=== PATIENT | female | born 1985 | race Caucasian/White ===

== ENCOUNTER 2018-01-16 12:20 | Inpatient (IN) | payer OTHER, SELFPAY ==
[2018-01-16 12:41] VITALS: BMI 36.6
[2018-01-16] MEDS: Lactated Ringers 1,000 ML 50 ML IV ×2 (12:45→22:16)
[2018-01-16 13:03] LABS: Mucous, Urine 0 SEEN /hpf (<or=2+); Red Blood Cells-Urine 0 SEEN /hpf (0-5)
[2018-01-16 13:07] LABS: Color, Urine Yellow (Yellow); Glucose, Dipstick Normal (Normal); Ketone-Dipstick Negative (Negative); Leukocyte Esterase-Dipstick 500 /ul (Negative); Nitrite-Dipstick Negative (Negative); Occult Blood-Urine Negative /ul (Negative); Protein-Dipstick Negative (Negative); Specific Gravity, Urine 1.015 (1.002-1.030); Urine Bilirubin Dipstick Negative (Negative); Urine Clarity Clear (Clear); Urine Urobilinogen Normal (Normal)
[2018-01-16 13:08] LABS: Hematocrit 34.3 % (37-47); Hemoglobin 11.2 g/dl (12.0-15.0); Mean Corp Hgb Conc 32.7 g/gl (32-36); Mean Corpuscular Hgb 27.2 pg (27.0-32.0); Mean Corpuscular Volume 83.3 fL (81-99); Mean Platelet Vol. 11.8 fl (6.2-12.0); Platelet Count 204 K/mm3 (150-450); RBC Distribution Width CV 14.3 % (11.6-14.6); RBC Distribution Width SD 41.9 fl (35.1-43.9); Red Blood Count 4.12 M/mm3 (4.2-5.4); Scan Indicated on CBC? Y/N NO
[2018-01-16 13:14] LABS: Bacteria 1+ /hpf (None Seen); Squamous Epithelial Cells - UA 0-5 SEEN /hpf (5-10); White Blood Cells 25-50 SEEN /hpf (0-5)
[2018-01-16 13:17] LABS: Amphetamine Urine VISTA NEGATIVE (<1000 ng/mL); Barbiturate Urine VISTA NEGATIVE (< 200 ng/mL); Benzodiazepine Urine VISTA NEGATIVE (< 200 ng/mL); Cocaine Urine VISTA NEGATIVE (< 300 ng/mL); Ecstacy Urine VISTA NEGATIVE (< 500 ng/mL); Methadone Urine VISTA NEGATIVE (< 300 ng/mL); PCP Urine VISTA NEGATIVE (< 25 ng/mL); THC Urine VISTA NEGATIVE (< 50 ng/mL); Vista UDS pH Range 5
[2018-01-16 13:48] LABS: Rubella IgG 27.2 IU/mL
[2018-01-16 14:14] LABS: HIV - WCH Non-Reactive (Nonreactive)
[2018-01-16] MEDS: Oxytocin 30 units/NS 500 ml 30 UNITS/500 ML IV.SOLN IV (14:26)
[2018-01-16 15:02] LABS: Chlamydia Trachomatis by PCR Negative (Negative); Group B Strep DNA By PCR Negative (Negative); Internal Control PASS; Neisserai gonorrhoeae by PCR Negative (Negative); Probe Check PASS; Sample Adequacy Control PASS; Specimen Processing Control PASS
[2018-01-17] VITALS (24 sets, daily range): BP systolic 76–115; BP diastolic 32–68; PULSE 62–98; RESP 12–18; TEMP 36.1–37.3; O2SAT 94–99
--- NOTE | 2018-01-17 00:01 | HP.PCM_ITS ---
- Problem List (1) Prolonged rupture of membranes Status: Acute (2) Previous delivery affecting Status: Acute History Date of Admission: 01/16/18 Final DANILO: 01/08/18 Gestational age: 41 Weeks and 2 Days History of this : This is a 32 year-old, G [], P [], at 41 weeks gestational age. Medical History: Medical History (Last Updated 01/17/18 @ 00:45 by Elsa Leone MD) delivery delivered O82 Knee pain, chronic M25.569, G89.29 Surgical History: Surgical History (Last Updated 01/17/18 @ 00:45 by Elsa Leone MD) H/O knee surgery Z98.890 Allergies No Known Allergies Allergy (Verified 01/16/18 13:17) Home Medications: Home Medications Calcium Citrate 200 mg PO DAILY 01/16/18 Multivitamin [Multiple Vitamins] 1 tab PO DAILY 01/16/18 Smoking Status: Never smoker Alcohol: None Number of Fetus(es): 1 Heart Tracin-140 moderate variability reactiv nilson decels cat I tracing TOCO Analysis: irregular History Past Pregnancies: Past Pregnancies Delivery Date Name GA/Weeks Outcome Route Weight Gender Labor Length Anesthesia Delivery Location Provider FOB 2016 Malinda 39 face presentation cs 7lbs8 oz female Labs: [facility] Microbiology 01/16/18 Unknown Genital vaginal Group B Streptococcus Culture - Pending Mom[facility] Problem List Problem Status Onset Code Prolonged rupture of membranes Acute O42.90 Previous delivery affecting Acute O34.219 [facility] Labs & Results 01/16/18 01/16/18 01/16/18 12:45 12:45 12:45 WBC 10.0 RBC 4.12 L Hgb 11.2 L Hct 34.3 L MCV 83.3 MCH 27.2 MCHC 32.7 RDW 14.3 RDW Differential 41.9 Plt Count 204 MPV 11.8 Urine Color Yellow Urine Clarity Clear Urine pH 6.0 Ur Specific [place] 1.015 Urine Protein Negative Urine Glucose (UA) Normal Urine Ketones Negative Urine Occult Blood Negative Urine Nitrite Negative Urine Bilirubin Negative Urine Urobilinogen Normal Ur Leukocyte Esterase 500 H Urine RBC 0 SEEN Urine WBC 25-50 SEEN Ur Squamous Epith Cells 0-5 SEEN Urine Bacteria 1+ Urine Mucus 0 SEEN Urine Opiates Screen Urine Methadone Screen Ur Barbiturates Screen Ur Phencyclidine Scrn Ur Amphetamines Screen U Methamphetamin-MDMA U Benzodiazepines Scrn Urine Cocaine Screen U Cannabinoids Screen Ur Drug Screen Comment RPR Chlam trachomat DNA PCR Hep Bs Antigen Hepatitis C Ab (EIA) HIV 1&2 Antibody N.gonorrhoeae DNA (PCR) Rubella IgG Antibody Group B Strep DNA Specimen Comment Blood Type A POSITIVE Antibody Screen NEGATIVE 01/16/18 01/16/18 01/16/18 12:45 12:45 12:45 WBC RBC Hgb Hct MCV MCH MCHC RDW RDW Differential Plt Count MPV Urine Color Urine Clarity Urine pH Ur Specific [place] Urine Protein Urine Glucose (UA) Urine Ketones Urine Occult Blood Urine Nitrite Urine Bilirubin Urine Urobilinogen Ur Leukocyte Esterase Urine RBC Urine WBC Ur Squamous Epith Cells Urine Bacteria Urine Mucus Urine Opiates Screen NEGATIVE Urine Methadone Screen NEGATIVE Ur Barbiturates Screen NEGATIVE Ur Phencyclidine Scrn NEGATIVE Ur Amphetamines Screen NEGATIVE U Methamphetamin-MDMA NEGATIVE U Benzodiazepines Scrn NEGATIVE Urine Cocaine Screen NEGATIVE U Cannabinoids Screen NEGATIVE Ur Drug Screen Comment RPR Pending Chlam trachomat DNA PCR Hep Bs Antigen Hepatitis C Ab (EIA) HIV 1&2 Antibody N.gonorrhoeae DNA (PCR) Rubella IgG Antibody 27.2 Group B Strep DNA Specimen Comment Blood Type Antibody Screen 01/16/18 01/16/18 01/16/18 12:45 12:45 12:45 WBC RBC Hgb Hct MCV MCH MCHC RDW RDW Differential Plt Count MPV Urine Color Urine Clarity Urine pH Ur Specific [place] Urine Protein Urine Glucose (UA) Urine Ketones Urine Occult Blood Urine Nitrite Urine Bilirubin Urine Urobilinogen Ur Leukocyte Esterase Urine RBC Urine WBC Ur Squamous Epith Cells Urine Bacteria Urine Mucus Urine Opiates Screen Urine Methadone Screen Ur Barbiturates Screen Ur Phencyclidine Scrn Ur Amphetamines Screen U Methamphetamin-MDMA U Benzodiazepines Scrn Urine Cocaine Screen U Cannabinoids Screen Ur Drug Screen Comment RPR Chlam trachomat DNA PCR Negative Hep Bs Antigen Pending Hepatitis C Ab (EIA) Pending HIV 1&2 Antibody Non-Reactive N.gonorrhoeae DNA (PCR) Negative Rubella IgG Antibody Group B Strep DNA Negative Specimen Comment Not Reportable Blood Type Antibody Screen Course Did the patient receive Yes care? Labs Blood Type: A RH: POSITIVE RPR/VDRL/Syphilis Nonreactive Rubella status Immune HbSAg Collected on Admission Date Done: 01/16/18 Chlamydia Negative Gonorrhea Negative HIV/AIDS Non-Reactive Group B Strep: Negative Current Obstetrical History Gestational Diabetes No Incompetent Cervix No Infertility No IUGR No Macrosomia No Hypertension/Pre-eclampsia No Placenta Previa/Abruption No PTL/PROM No Uterine anomaly No Oligohydramnios No Polyhydramnios No Multiple gestation No Past Medical History Asthma No Diabetes No Hypertension No Heart disease No Mitral valve prolapse No Neurologic/Seizure disorder/ No Migraines Kidney disease No Liver disease No Varicosities Yes Clotting disorders/Hx of DVT No Thyroid Dysfunction No Other medical diseases No Psychiatric disorders No Major trauma No Abnormal PAP smear No Sleep apnea No Mammogram in the last 2 years No Social History Marital Status: Alleged father VALERI Hx Smoking No Smoking Status Never smoker How long have you used NA substances (years)? Expected Delivery Method: Review of Systems Constitutional: Denies: Fever, Malaise Eyes: Denies: Blurred vision, Vision Change HEENT: Denies: Head Aches, Visual Changes Cardiovascular: Denies: Chest Pain, Palpitations Respiratory: Denies: Cough, Shortness of Breath, Wheezing Gastrointestinal: Denies: Abdominal Pain, Diarrhea, Nausea, Vomiting Genitourinary: Denies: Dysuria, Hematuria Musculoskeletal: Denies: Joint Pain, Muscle pain Skin: Denies: Lesions, Rash Neurological: Denies: Blurred vision, Focal weakness, Headaches Psychiatric: Denies: Anxiety, Depression Endocrine: Denies: Heat/ Cold Intolerance Hematologic/ Lymphatic: Denies: Easy Bruising, Easy Bleeding Physical Exam General: Alert, Cooperative, No apparent distress HEENT: Atraumatic, Normocephalic. Negative for: Thyromegaly, Lymphadenopathy Cardiovascular: Regular rate Lungs: Normal air movement Abdomen: Soft, Non Tender, Gravid Neurological: Deep Tendon Reflexes 2+/4 and Symmetrical, Neuro grossly intact. Negative for: Clonus INSTRUCTIONAL MEDIA SERVICES TECHNICIAN: Normal external genitalia. Negative for: Vulvar lesions Estimated gestational size: Appropriate for gestational size Presentation: Cephalic Cervix Dilation (cm): 3.5 Assessment/Plan All Active Problems Prolonged rupture of membranes (Acute) Previous delivery affecting (Acute) This is a 32 year-old, G2, at 41 weeks gestational age desires Patient presents Pitocin IOL, plan expectant management for . patient counseled regarding risks of - consent signed. Pain management: open to epi if needed but declines at this time. GBS uknown, but PROM 48 hours recommend ampicillin. Management of any complications: PROM I have reviewed the [facility] and made any clinically relevant updates.
--- NOTE | 2018-01-17 00:54 | PCM.PN.BLA ---
Progress Note fht 140-145 moderate variability reactive intermittent variable/ isolated late decel. cat II. now in regular ctx pattern and making cervical change s/p epi. continue exp management.
--- NOTE | 2018-01-17 02:59 | PCM.PN.BLA ---
Progress Note fht 140s min-moderate variability positive scalp stimulation, recurrent late decels cat II tracing- position changes and decresaed pitocin. 7 cm dilated 0 station, ROP. discussed with patient- start amnioinfuion for variable appearance to some decels, and no appears more like early decels- continue to monitor. bedside huddle performed with nurse and charge nurse. rassuring at present but repeat huddle in 30 minutes to reassess.
--- NOTE | 2018-01-17 03:39 | PCM.OPRPT ---
Problem List (1) Prolonged rupture of membranes Status: Acute (2) Previous delivery affecting Status: Acute Report of Operation Date of Procedure: 01/17/18 Pre-Operative Diagnosis: FTP secondary to CPD, category II tracing Post-Operative Diagnosis: Same Surgery/Procedure Performed:: RLTCS Description of Surgical Findings:: Infant in HANK presentation narrow pelvis director of campus recreation: Katelyn Keenan Type of Anesthesia:: Epidural Special Medications: ancef azithromycin Specimen's removed: infant Drains: Calix Estimated Blood Loss (mL): 800 cc Fluids Replaced: Crystalloid Description of Procedure: The patient is a 32-year-old who presented at 48 hours P PROM at 41 and 1 weeks from an attempted home labor. Patient had a history of a previous secondary to face presentation. She had been receiving care from a master lay out specialist in the community but had received 3 normal ultrasounds during the room in normal anatomy. Patient was 3-4 cm dilated upon presentation, GBS unknown, and was irregularly kalani. Patient was started on Pitocin and developed regular contractions. She may change to 5 cm and then experienced an arrest of dilation. Was recommended for her to get an epidural and the Pitocin was turned on and off and then redosed and patient made change up to 6-7 cm. After 4 hours patient experienced another arrest of dilation and developed a category 2 recurrent tracing with late decelerations that were recurrent with greater than 50% of contractions and therefore the decision was made for a primary . Epidural anesthesia was dosed accordingly and the patient was placed in the dorsal supine position with leftward tilt. Patient was prepped and draped in the normal sterile fashion. Pfannenstiel skin incision was made with the scalpel and carried through to the underlying layer of fascia with the scalpel. Fascia was nicked in the midline and the incision extended laterally. The rectus bellies were dissected off superiorly and inferiorly with out complication both sharply and bluntly. The peritoneum was entered digitally. The incision was stretched and a low transverse uterine incision was made with the scalpel. The infant's head was delivered atraumatically followed by the anterior and posterior shoulders without complication the rest of the infant delivered. The cord was clamped and cut and the was handed off to awaiting nurse. The placenta was delivered spontaneously immediately following and was noted to be intact and have a three-vessel cord. The uterus was exteriorized cleared of all clots and debris, and the incision was closed in a double layer closure using #1 Monocryl. The uterus was returned to the maternal abdomen and gutters were cleared of all clots and debris. The ovaries and fallopian tubes were noted to be within normal limits. The peritoneum was closed with 3-0 Monocryl in a running fashion. Fascia was closed with 0 PDS in a running fashion. Subcutaneous tissue was copiously irrigated and the skin was closed with 3-0 Monocryl in a subcuticular fashion. Steri-Strips and Mepilex dressing were applied without complication. Patient was taken to recovery in stable condition. Grafts/Implants Used: None - Complications none - Admit VTE Documentation VTE Present on Admission: No
[2018-01-17] MEDS: Sodium Citrate/Citric Acid 30 ML UDC PO (03:42)
[2018-01-17] MEDS: Cefazolin 2 GM in 0.9% Normal Saline 100 ML IV (03:49)
[2018-01-17] MEDS: Oxytocin 30 units/NS 500 ml 30 UNITS/500 ML IV.SOLN 167 UNITS IV (04:11)
[2018-01-17] MEDS: Lactated Ringers 1,000 ML 100 ML IV ×2 (05:28→11:11)
[2018-01-17 10:23] LABS: HEPATITIS B SURFACE AG Negative (Negative); Hep C Antibodies <0.1 s/co ratio (0.0-0.9)
[2018-01-17] MEDS: Ketorolac 30 MG/ML Syringe IV ×3 (11:11→23:20)
--- NOTE | 2018-01-17 13:00 | NURSING ---
This clinical nursing director reviewed the charting completed by Lincoln Spence and it is complete.
[2018-01-17] MEDS: 0.9% Saline Lock 10 ML Syringe IV ×2 (17:07→23:20)
[2018-01-18 02:37] VITALS: PULSE 61; RESP 18; O2SAT 97
[2018-01-18 04:15] VITALS: BP 114/54; PULSE 81; RESP 16; TEMP 37.1; O2SAT 97
[2018-01-18] MEDS: Ketorolac 30 MG/ML Syringe IV ×4 (05:32→23:08)
[2018-01-18] MEDS: 0.9% Saline Lock 10 ML Syringe IV ×5 (05:32→23:08)
[2018-01-18 05:54] LABS: Hematocrit 28.8 % (37-47); Hemoglobin 9.2 g/dl (12.0-15.0); Mean Corp Hgb Conc 31.9 g/gl (32-36); Mean Corpuscular Volume 84.5 fL (81-99); Mean Platelet Vol. 10.7 fl (6.2-12.0); Platelet Count 150 K/mm3 (150-450); RBC Distribution Width CV 14.6 % (11.6-14.6); RBC Distribution Width SD 45.2 fl (35.1-43.9); Red Blood Count 3.41 M/mm3 (4.2-5.4)
[2018-01-18 06:13] LABS: Scan Indicated on CBC? Y/N NO
--- NOTE | 2018-01-18 08:04 | PCM.PN.OB ---
Patient Problems: Active and Suspected Problems (Last Updated 01/17/18 @ 00:45 by Elsa Leone MD) Prolonged rupture of membranes (Acute) Previous delivery affecting (Acute) Subjective: NO SOB, CP. Ambulating. Doing well - Physical Exam General: Alert, Oriented x3 Abdomen: Soft, Non-Distended, - - FF below U. Dressing intact. Old dark drainage 2cm outer left side/nurses aware. No new drainage Vital Signs Temp Pulse Resp BP Pulse Ox 98.7 F 81 16 114/54 L 97 01/18/18 04:15 01/18/18 04:15 01/18/18 04:15 01/18/18 04:15 01/18/18 04:15 Oxygen Delivery Method Room Air Weight: 220 lb 0.341 oz Body Mass Index (BMI) 36.6 Intake and Output for Last 24 Hours 01/16/18 01/17/18 01/18/18 23:59 23:59 23:59 Intake Total 480 / 480 3513 / 3513 Output Total 200 / 200 3300 / 3300 Balance 280 / 280 213 / 213 Laboratory Tests Past 24 Hrs 01/16/18 01/18/18 12:45 05:04 WBC 8.0 RBC 3.41 L Hgb 9.2 L Hct 28.8 L MCV 84.5 MCH 27.0 MCHC 31.9 L RDW 14.6 RDW Differential 45.2 H Plt Count 150 MPV 10.7 Hep Bs Antigen Negative Hepatitis C Ab (EIA) <0.1 Medical Necessity - Tobacco Use Smoking Status: Never smoker Assessment/Plan All Active Problems (Last Updated 01/17/18 @ 00:45 by Elsa Lenoe MD) Prolonged rupture of membranes (Acute) Previous delivery affecting (Acute) LTRCS POD#1: Routine care. Pain controlled.
[2018-01-18 08:32] VITALS: BP 109/56; PULSE 77; RESP 16; TEMP 36.9
[2018-01-18] MEDS: Prenatal Vits Tablet 1 TABLET PO (11:21)
[2018-01-18 14:00] VITALS: BP 118/74; PULSE 79; RESP 16; TEMP 36.8
[2018-01-18 20:50] VITALS: BP 135/71; PULSE 94; RESP 18; TEMP 37.4; O2SAT 95
[2018-01-19 01:58] LABS: Rapid Plasmin Reagin (RPR) NONREACTIVE (NONREACTIVE)
[2018-01-19 03:05] VITALS: BP 117/72; PULSE 76; RESP 18; TEMP 37.7; O2SAT 95
--- NOTE | 2018-01-19 03:05 | NURSING ---
Pt. vital signs obtained. Temporal artery temperature found to be 99.9 degrees F. All other vital signs within normal limits. Pt. states she feels warm but does not feel ill or have any c/o. Tylenol given to help with low grade fever and a pain level of 4.
[2018-01-19] MEDS: Acetaminophen 500 MG Tablet 1000 MG PO ×2 (03:26→14:41)
[2018-01-19 05:02] VITALS: TEMP 37
[2018-01-19] MEDS: Ketorolac 30 MG/ML Syringe IV (05:04)
[2018-01-19] MEDS: 0.9% Saline Lock 10 ML Syringe IV (05:04)
[2018-01-19 07:52] VITALS: BP 126/68; PULSE 75; RESP 16; TEMP 36.9; O2SAT 97
--- NOTE | 2018-01-19 09:48 | PCM.PN.OB ---
Patient Problems: Active and Suspected Problems (Last Updated 01/17/18 @ 00:45 by Elsa Leone MD) Prolonged rupture of membranes (Acute) Previous delivery affecting (Acute) Subjective: doing well n ocomplaints - Physical Exam General: Alert, Oriented x3 Vital Signs Temp Pulse Resp BP Pulse Ox 98.5 F 75 16 126/68 H 97 01/19/18 07:52 01/19/18 07:52 01/19/18 07:52 01/19/18 07:52 01/19/18 07:52 Oxygen Delivery Method Room Air Weight: 220 lb 0.341 oz Body Mass Index (BMI) 36.6 Intake and Output for Last 24 Hours 01/17/18 01/18/18 01/19/18 23:59 23:59 23:59 Intake Total 3513 / 3513 Output Total 3300 / 3300 1000 / 1000 Balance 213 / 213 -1000 / -1000 Microbiology Past 72 Hours 01/16/18 Unknown Group B Streptococcus Culture - Preliminary Genital vaginal Group B Beta Streptococcus is not isolated. Laboratory Tests Past 24 Hrs 01/16/18 12:45 RPR NONREACTIVE Medical Necessity - Tobacco Use Smoking Status: Never smoker Assessment/Plan All Active Problems (Last Updated 01/17/18 @ 00:45 by Elsa Leone MD) Prolonged rupture of membranes (Acute) Previous delivery affecting (Acute) s/p LTCS PPD # 3 1. routine post care 2. breast feeding- support given 3. rh positive 4. rubella immune
--- NOTE | 2018-01-19 09:50 | DCINST_ITS ---
Discharge Diet: No Restrictions Discharge Activity: May Not Drive - for 2 weeks, May not drive while taking narcotic pain medications., May Shower, May Take a Tub Bath - in 7 days May resume sexual activity in: 4-6 weeks Lifting Restrictions: 20 pounds Additional Activity Instructions:: Nothing in the vagina for 4-6 weeks. You may return to work/school in 6 weeks. Call your doctor if your incision/area has: Continuous Slow Oozing, Sudden Increased Bleeding, Increased Pain/ Swelling, Increased Redness, Foul Smelling Discharge Call your doctor if you observe: Fever of 101 or Higher, Using more than one pad per hour - for 2 hours Suture Line Care: Avoid Pulling/Pushing, Avoid Pinching/Bending Cleanse incision/area with: Keep Dressing Clean & Dry Additional Instructions: If you experience any of the following, contact your healthcare provider. * Bleeding that soaks a pad every hour for 2 hours * Fever 100.4 or higher * Unrelieved incision or abdominal pain * Swelling, redness, discharge or bleeding from your incision or episiotomy site * Your incision begins to separate * Problems urinating (including inability to urinate or burning while urinating). * Visual changes * Severe headache * Flu-like symptoms * Pain or redness in one of both of your breasts * Pain, warmth, tenderness or swelling in your legs, especially the calf area * Frequent nausea and vomiting * Symptoms of depression or anxiety If you experience any of the following, call 911 or go to the nearest Emergency Room. * Chest pain * Problems breathing * Seizure activity * Partial or complete paralysis of a body part, slurred speech, weakness or drooping of the face, or a sudden inability to walk or hold your balance Allergies/Adverse Reactions: Allergies No Known Allergies Allergy (Verified 01/16/18 13:17) Medications to take at Discharge Calcium Citrate 200 mg PO DAILY 01/16/18 Multivitamin [Multiple Vitamins] 1 tab PO DAILY 01/16/18 Naproxen [Naprosyn] 250 - 500 mg PO Q8H PRN PRN #30 tablet 01/19/18 Oxycodone HCl/Acetaminophen [Percocet 5-325] 1 - 2 tablet PO Q4H PRN PRN 7 Days #15 tablet 01/19/18 The following prescriptions were given: Oxycodone HCl/Acetaminophen [Percocet 5-325] 1 - 2 tablet PO Q4H PRN PRN 7 Days #15 tablet PRN Reason: Pain Naproxen [Naprosyn] 250 - 500 mg PO Q8H PRN PRN #30 tablet PRN Reason: MILD PAIN Follow-Up: Call to make an appointment with your doctor for an incision check in 1-2 weeks. You will also need a 6 week post- follow up appointment. Test results from this visit will be discussed in further detail at your follow-up appointment, if applicable. Please Follow Up With: Elsa Leone MD - Call to make an appointment for an incision check in 1-2 [phone] When: You will need a post- check in 6 weeks. Primary Care Physician: Care Physician,No Primary [Primary Care Provider] -
[2018-01-19] MEDS: Prenatal Vits Tablet 1 TABLET PO (12:20)
[2018-01-19] MEDS: Naproxen 250 MG Tablet PO (12:20)
[2018-01-19 14:29] VITALS: BP 133/75; PULSE 73; RESP 14; TEMP 36.6; O2SAT 99
--- NOTE | 2018-01-25 08:55 | PCM.DC.SUM ---
Discharge Date and Diagnosis Date of Admission: 01/16/18 Date of Discharge: 01/19/18 Hospital Course and Treatment Consultations 01/16/18 12:41 Consult: Anesthesia Routine Comment: Reason For Exam: labor Operations: - - csection Procedures: None Summary of Care Provided: The patient is a 32 year old F presents IAL SROM over 48 hours, she was managed with pitocin and had an arrest of dilation and underwent RLTCS. routine recovery post op and discharged home pod 2 - Physical Exam Vital Signs Temp Pulse Resp BP Pulse Ox 98 F 73 14 133/75 H 99 01/19/18 14:29 01/19/18 14:29 01/19/18 14:29 01/19/18 14:29 01/19/18 14:29 Oxygen Delivery Method Room Air Weight: 220 lb 0.341 oz Body Mass Index (BMI) 36.6 Discharge Diet: No Restrictions Discharge Activity: May Not Drive - for 2 weeks, May not drive while taking narcotic pain medications., May Shower, May Take a Tub Bath - in 7 days May resume sexual activity in: 4-6 weeks Additional Activity Instructions:: Nothing in the vagina for 4-6 weeks. You may return to work/school in 6 weeks. Call your doctor if your incision/area has: Continuous Slow Oozing, Sudden Increased Bleeding, Increased Pain/ Swelling, Increased Redness, Foul Smelling Discharge Call your doctor if you observe: Fever of 101 or Higher, Using more than one pad per hour - for 2 hours Suture Line Care: Avoid Pulling/Pushing, Avoid Pinching/Bending Cleanse incision/area with: Keep Dressing Clean & Dry Home Medications: Medications to take at Discharge Calcium Citrate 200 mg PO DAILY 01/16/18 Multivitamin [Multiple Vitamins] 1 tab PO DAILY 01/16/18 Naproxen [Naprosyn] 250 - 500 mg PO Q8H PRN PRN #30 tablet 01/19/18 Oxycodone HCl/Acetaminophen [Percocet 5-325] 1 - 2 tablet PO Q4H PRN PRN 7 Days #15 tablet 01/19/18 Following Prescrptions Were Given to Patient: Oxycodone HCl/Acetaminophen [Percocet 5-325] 1 - 2 tablet PO Q4H PRN PRN 7 Days #15 tablet PRN Reason: Pain Naproxen [Naprosyn] 250 - 500 mg PO Q8H PRN PRN #30 tablet PRN Reason: MILD PAIN Primary Care Physician: Care Physician,No Primary [Primary Care Provider] - Please Follow Up With: Elsa Leone MD - Call to make an appointment for an incision check in 1-2 [phone] When: You will need a post- check in 6 weeks. Medical Necessity - Tobacco Use Smoking Status: Never smoker Meaningful Use Info Meaningful Use Diagnoses (Choose all that apply): None applicable
== END 2018-01-19 15:35 | disposition home or self-care (01) | DRG 788 ==
PROVIDERS: Admitting Provider Obstetrics & Gynecology; Referring Provider Obstetrics & Gynecology; Visit Provider Obstetrics & Gynecology
DX: O62.0 Primary inadequate contractions (principal); O34.211 Maternal care for low transverse scar from previous cesarean delivery; O33.1 Maternal care for disproportion due to generally contracted pelvis; O48.0 Post-term pregnancy; Z3A.41 41 weeks gestation of pregnancy; Z37.0 Single live birth
CPT/HCPCS: 59025; 59050; 80307; 81001; 85027; 86592; 86703; 86762; 86803; 86850; 86900; 87081; 87340; 87491; 87591; 87653; 99218; J7030; J7120; A4216; G0378; J0290

== ENCOUNTER → 2018-03-26 12:16 | Outpatient (CLI) | payer OTHER, SELFPAY ==
[2018-03-26 11:53] VITALS: BMI 36.6
[2018-03-26 12:52] LABS: Absolute Lymphocyte Count 2.23 X10^3/ul (0.83-4.51); Absolute Neutrophil Count 1.9 X10^3/uL (2.0-7.7); Basophil# 0.01 X10^3/uL; Basophil% 0.2 % (0-1); Eosinophil# 0.07 X10^3/uL; Eosinophils% 1.5 % (0-5); Hematocrit 37.3 % (37-47); Hemoglobin 12.3 g/dl (12.0-15.0); Lymphocyte # 2.23 X10^3/ul (4.0); Lymphocyte % 48.8 % (19-41); Mean Corpuscular Hgb 27.2 pg (27.0-32.0); Mean Corpuscular Volume 82.5 fL (81-99); Mean Platelet Vol. 11.2 fl (6.2-12.0); Monocyte# 0.39 X10^3/uL; Monocyte% 8.5 % (0-10); Neutrophil # 1.87 X10^3/uL (2.7-7.7); Platelet Count 260 K/mm3 (150-450); RBC Distribution Width CV 15.2 % (11.6-14.6); RBC Distribution Width SD 46.2 fl (35.1-43.9); Red Blood Count 4.52 M/mm3 (4.2-5.4); White Blood Count 4.6 K/mm3 (4.4-11.0)
[2018-03-26 13:04] LABS: POSITIVE COUNT NO; POSITIVE DIFFERENTIAL NO; POSITIVE MORPHOLOGY NO
[2018-03-26 13:08] LABS: Thyroid Stim Hormone (TSH) 1.66 uIU/mL (0.358-3.74)
== END ==
PROVIDERS: Visit Provider Obstetrics & Gynecology
DX: N93.9 Abnormal uterine and vaginal bleeding, unspecified (principal)
CPT/HCPCS: 36415; 84443; 85025

== ENCOUNTER → 2018-10-08 10:58 | Outpatient (CLI) | payer OTHER, SELFPAY ==
[2018-10-08 10:32] VITALS: BMI 36.6
[2018-10-08 11:41] LABS: Absolute Lymphocyte Count 1.45 X10^3/uL (0.83-4.51); Absolute Neutrophil Count 4.5 X10^3/uL (2.0-7.7); Basophil# 0.02 X10^3/uL; Basophil% 0.3 % (0-1); Eosinophil# 0.14 X10^3/uL; Eosinophils% 2.1 % (0-5); Hematocrit 36.4 % (37-47); Hemoglobin 12.1 g/dL (12.0-15.0); Lymphocyte # 1.45 X10^3/ul (4.0); Lymphocyte % 22.1 % (19-41); Mean Corp Hgb Conc 33.2 g/dL (32-36); Mean Corpuscular Hgb 29.7 pg (27.0-32.0); Mean Corpuscular Volume 89.4 fL (81-99); Mean Platelet Vol. 11.7 fl (6.2-12.0); Monocyte# 0.46 X10^3/uL; NRBC Flagged by Analyzer 0 % (0-5); Neutrophil # 4.46 X10^3/uL (2.7-7.7); Platelet Count 221 K/mm3 (150-450); RBC Distribution Width CV 12.6 % (11.6-14.6); RBC Distribution Width SD 41.5 fl (35.1-43.9); Red Blood Count 4.07 M/mm3 (4.2-5.4); White Blood Count 6.6 K/mm3 (4.4-11.0)
[2018-10-08 11:49] LABS: Glucose Challenge Gest 1H 50g 74 mg/dL (70-140)
[2018-10-08 13:04] LABS: HIV - WCH Non-Reactive (Nonreactive); Hepatitis B Surface Antigen Non-Reactive (Nonreactive); Rubella IgG 29.3 IU/mL
[2018-10-08 14:46] LABS: Chlamydia Trachomatis by PCR Negative (Negative); Neisserai gonorrhoeae by PCR Negative (Negative); Probe Check PASS; Sample Adequacy Control PASS; Specimen Processing Control PASS
[2018-10-12 01:33] LABS: Rapid Plasmin Reagin (RPR) NONREACTIVE (NONREACTIVE)
== END ==
PROVIDERS: Referring Provider Nurse Practitioner Women's Health; Visit Provider Nurse Practitioner Women's Health
DX: Z34.81 Encounter for supervision of other normal pregnancy, first trimester (principal)
CPT/HCPCS: 36415; 82950; 85025; 86592; 86703; 86762; 86850; 86900; 87077; 87086; 87088; 87186; 87340; 87491; 87591

== ENCOUNTER → 2018-12-07 12:14 | Outpatient (CLI) | payer OTHER, SELFPAY ==
[2018-11-05 14:56] VITALS: BMI 36.6
--- NOTE | 2018-12-07 12:16 | US_ITS ---
STUDY: SECOND AND THIRD TRIMESTER OBSTETRICAL ULTRASOUND REASON FOR EXAM: Female, 33 years old anatomy. LMP: July 24, 2018. TECHNIQUE: Transabdominal TECHNICAL QUALITY: Adequate. PRIOR ULTRASOUND: None. FINDINGS: There is a single intrauterine fetus. The fetus is in a transverse lie with the head on the maternal right side. There is demonstrated cardiac activity with a heart rate of 130 bpm. There is a normal amniotic fluid volume. The largest amniotic fluid pocket measures 4.1 cm x 4.5 cm. The amniotic fluid index (JOSH) is within normal limits. The placenta is posterior in location and is not low lying. There are Grade 0 placental changes. The placenta is vascular. There is a 1.5 cm x 0.8 cm x 1 cm placental tan. The cervix measures 4.2 cm in length. The bilateral adnexal regions are normal. BIOMETRY: BPD: 4.34 cm: 19 weeks, 0 days HC: 15.68 cm: 18 weeks, 6 days AC: 14.77 cm: 20 weeks, 0 days FL: 2.9 Sylvester: 18 weeks, 5 days CI: 80.7% FL/BPD: 66.3% FL/HC: FL/AC: 19.4% HC/AC: 1.06 age by current US: 8 weeks, 5 days. DANILO by current US: May 05, 2019. Estimated weight: 295 grams, +/- 44 grams, 39 %. Age by LMP: 19 weeks, 3 days. DANILO by LMP: April 30, 2018. ANATOMY: Gender: Female Cranium: Normal lateral ventricles. Normal choroid plexus. Normal cerebellum. Normal cisterna magna. Normal face, nose and lips. Chest: Normal 4-chamber heart. Abdomen/Pelvis: Normal diaphragm. Normal stomach. Normal abdominal wall. Normal cord insertion. Normal 3 vessel cord. Normal kidneys. Normal bladder. Spine: Normal cervical spine. Normal thoracic spine. Normal lumbar spine. Normal sacrum. Extremities: Normal bilateral upper extremities. Normal bilateral lower extremities. US/OB Anatomy Scan IMPRESSION: Single live intrauterine gestation with a mean gestational age of 19 weeks and 3 days. Electronically Signed: Prashanth Kellogg, at 9:10 EDT , Service support ,
== END ==
PROVIDERS: Referring Provider Obstetrics & Gynecology; Visit Provider Obstetrics & Gynecology
DX: Z36.89 Encounter for other specified antenatal screening (principal)
CPT/HCPCS: 76805

== ENCOUNTER → 2019-02-12 15:00 | Outpatient (CLI) | payer OTHER, SELFPAY ==
[2019-02-12 14:18] VITALS: BMI 30.7
[2019-02-12 15:28] LABS: Absolute Lymphocyte Count 1.97 X10^3/uL (0.83-4.51); Basophil# 0.01 X10^3/uL; Basophil% 0.1 % (0-1); Eosinophil# 0.17 X10^3/uL; Hematocrit 35.6 % (37-47); Hemoglobin 11.5 g/dL (12.0-15.0); Lymphocyte # 1.97 X10^3/ul (4.0); Lymphocyte % 22.6 % (19-41); Mean Corp Hgb Conc 32.3 g/dL (32-36); Mean Corpuscular Hgb 29.3 pg (27.0-32.0); Mean Corpuscular Volume 90.6 fL (81-99); Mean Platelet Vol. 10.8 fl (6.2-12.0); Monocyte# 0.54 X10^3/uL; Monocyte% 6.2 % (0-10); NRBC Flagged by Analyzer 0 % (0-5); Neutrophil # 5.97 X10^3/uL (2.7-7.7); Neutrophil % 68.5 % (47-70); Platelet Count 220 K/mm3 (150-450); RBC Distribution Width CV 12.8 % (11.6-14.6); RBC Distribution Width SD 42.5 fl (35.1-43.9); Red Blood Count 3.93 M/mm3 (4.2-5.4); White Blood Count 8.7 K/mm3 (4.4-11.0)
[2019-02-12 15:48] LABS: Glucose Challenge Gest 1H 50g 94 mg/dL (70-140)
== END ==
PROVIDERS: Referring Provider Nurse Practitioner Women's Health; Visit Provider Nurse Practitioner Women's Health
DX: Z34.80 Encounter for supervision of other normal pregnancy, unspecified trimester (principal)
CPT/HCPCS: 36415; 82950; 85025

== ENCOUNTER 2019-04-29 09:55 | Inpatient (IN) | payer OTHER, SELFPAY ==
[2019-02-28 14:04] VITALS: BMI 30.7
[2019-04-19 15:47] VITALS: BMI 35.4
[2019-04-29] VITALS (16 sets, daily range): BP systolic 100–135; BP diastolic 53–80; PULSE 54–68; RESP 16–18; TEMP 36.2–37.1; O2SAT 98–100; BMI 34.8
[2019-04-29] MEDS: Lactated Ringers 1,000 ML 999 ML IV (10:40)
[2019-04-29 11:04] LABS: Absolute Lymphocyte Count 1.65 X10^3/uL (0.83-4.51); Absolute Neutrophil Count 4.4 X10^3/uL (2.0-7.7); Basophil# 0.01 X10^3/uL; Basophil% 0.1 % (0-1); Eosinophil# 0.14 X10^3/uL; Eosinophils% 2.1 % (0-5); Hematocrit 34.8 % (37-47); Hemoglobin 11.3 g/dL (12.0-15.0); Lymphocyte # 1.65 X10^3/ul (4.0); Lymphocyte % 24.3 % (19-41); Mean Corp Hgb Conc 32.5 g/dL (32-36); Mean Corpuscular Hgb 27.4 pg (27.0-32.0); Mean Corpuscular Volume 84.5 fL (81-99); Mean Platelet Vol. 11.1 fl (6.2-12.0); Monocyte# 0.55 X10^3/uL; Monocyte% 8.1 % (0-10); NRBC Flagged by Analyzer 0 % (0-5); Neutrophil # 4.41 X10^3/uL (2.7-7.7); Neutrophil % 64.8 % (47-70); Platelet Count 204 K/mm3 (150-450); RBC Distribution Width CV 14.2 % (11.6-14.6); RBC Distribution Width SD 43.6 fl (35.1-43.9); Red Blood Count 4.12 M/mm3 (4.2-5.4); White Blood Count 6.8 K/mm3 (4.4-11.0)
[2019-04-29] MEDS: Lactated Ringers 1,000 ML 150 ML IV (11:50)
[2019-04-29] MEDS: Sodium Citrate/Citric Acid 30 ML UDC PO (12:06)
[2019-04-29] MEDS: Cefazolin 2 GM in 0.9% Normal Saline 100 ML IV (12:20)
--- NOTE | 2019-04-29 12:45 | PCM.HPOB.BLA ---
- Problem List (1) Family history of cleft palate Status: Acute Comment: Patient's sister (2) GBS (group B streptococcus) UTI complicating Status: Acute Qualifiers: Comment: treated (3) History of Status: Acute Comment: plans c section, hx failed (4) Status: Acute Qualifiers: Comment: Declines carrier. NIPT low risk,declines ntd screening. 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 Status: Acute Comment: enc support stockings History and Physical Date of Admission: 04/29/19 Intake Vital Signs 04/19/19 BMI 35.4 04/19/19 Height 5 ft 5.5 in 04/19/19 Weight: 218 lb 04/19/19 BMI 35.7 04/19/19 BP 110/62 Intake Visit Reasons: 37 WK OB Human Resource Professional Required: No Is patient in pain?: No Allergies cephalexin Adverse Reaction (Mild, Verified 04/19/19 15:46) Rash Penicillins Adverse Reaction (Mild, Verified 04/19/19 15:46) Hives Medications Multivitamin [Multiple Vitamins] 1 tab PO DAILY 01/16/18 [History Confirmed 04/19/19] lactobacillus combination no.8 3 billion cell capsule 3,000 mmu cells PO DAILY 03/06/18 [History Confirmed 04/19/19] Last Menstral Period: 07/24/18 Zika: Zika virus screening: Negative : No PFSH PFSH Medical History Knee pain, chronic (Acute) Surgical History delivery delivered (Acute) H/O knee surgery (Acute) Family History Unknown Diabetes Social History (Updated 04/19/19 @ 15:52 by Elsa Leone MD) Smoking Status: Never smoker alcohol intake: never substance use type: does not use caffeine: Yes what type of physical activity do you participate in: walking seatbelt use: always do you feel safe at home: Yes additional social history: Gene- [employer] and 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 Date Name GA/Weeks Outcome Route Bth Weight Gen Labor Lgth Anesthesia Del Locatn Provider FOB Unknown 2015 Malinda 44 live - full term 7lbs 10oz Female [address] Cali [place] Unknown 2017 Woo 41 live - full term 9lbs 2oz Male spinal [facility] Delivery Date: On 10/08/18 @ 10:05 Lo Monique post dates, prolonged labored. face presentation Delivery Date: On 10/08/18 @ 10:07 Lo Monique face presentation HPI 37 WK OB: Details: JOSE ANTONIO KNOWLES is a 33 year old who presents for routine OB visit. OB Visit DANILO Calculator Estimated Delivery Date Method Current WG Current Estimate 04/30/19 LMP (Certain) 38w 3d Other Estimates 05/02/19 Ultrasound #1 38w 1d Expected Delivery Route/Plan LTRCS Specific Issue/Plans flu vaccine: given tdap vaccine: given rhogam: na LARC form signed: yes labor support person: Sary pain management: c section cut cord/dad catch: [] : yes PP control planned: [] special requests: [] Initial Weight: Not Recorded Date EGA Weight BP Urine Prot Glucose FHR FuHt Pres Dilation Effaced St Visit Note 12/07/18 19w 3d 187 lb 8 oz 120/72 Negative Negative 153 No Vb, LOF. Doing well 02/12/19 29w 0d 208 lb 120/80 Negative Negative 134 29 Good FM. NO VB, LOF. 28 wk labs, flu, tdap 02/28/19 31w 2d 205 lb 116/72 135 31 no vb lof good fm no reg ctx 03/15/19 33w 3d 216 lb 126/82 Negative Negative 135 34 SM- no vb lof good fm no reg ctx 04/12/19 37w 3d 213 lb 8 oz 121/65 Negative Negative 150 37 SM- no vb lof good fm no regular ctx 04/19/19 38w 3d 218 lb 110/62 Negative Negative 140 38 SM- no vb lof good fm no reg ctx Notes Visit Date: 04/19/19 ??No visit notes to display Visit Date: 04/12/19 ??No visit notes to display Visit Date: 03/15/19 ??No visit notes to display Visit Date: 02/28/19 ??no vb lof good fm no reg ctx ??Elsa Leone MD on 02/28/19 Visit Date: 02/12/19 ??Good FM. NO VB, LOF. 28 wk labs, flu, tdap ??TRACI ByrdC on 02/12/19 Visit Date: 12/07/18 ??No Vb, LOF. Doing well ??KATY Byrd on 12/07/18 ACOG First Trimester First Trimester: Second Trimester Second Trimester: Signs and Symptoms of Labor, Selecting a care provider, Reproductive Life Planning, Care Planning, Tobacco Cessation, Depression/Anxiety and Intimate Partner Violence Third Trimester Third Trimester: Pain Management Plans, Labor support person(s), Immediate Larc, Movement Monitoring and Infant Feeding Yes ; discussed Trial of Labor after Counseling or discussed Circumcision preference Diagnostics Diagnostics Diagnostics Blood Type A POSITIVE 10/08/18 Antibody Screen NEGATIVE 10/08/18 Glucose 1 Hr 50 gm 94 mg/dL (70-140) 02/12/19 HIV 1&2 Antibody Non-Reactive (Nonreactive) 10/08/18 Rubella IgG Antibody 29.3 IU/mL 10/08/18 Hgb 11.5 g/dL (12.0-15.0) L 02/12/19 Hct 35.6 % (37-47) L 02/12/19 RPR NONREACTIVE (NONREACTIVE) 10/08/18 Details: HIV: Urine Culture: Sequential Screen: NIPT Screen: ROS Const Reports system reviewed and no additional complaints, except as docu Card Reports system reviewed and no additional complaints, except as docu Resp Reports system reviewed and no additional complaints, except as docu GI Reports system reviewed and no additional complaints, except as docu, Reports nausea Reports system reviewed and no additional complaints, except as docu Musc Reports system reviewed and no additional complaints, except as docu Exam Const General: cooperative, healthy appearing, comfortable, anxious HENMT Head: normal to inspection Nose: external nose normal Face and sinus: normal facial exam Neck Neck: normal visual inspection, full ROM, no lymphadenopathy Thyroid: thyroid normal Chest Chest palpation & inspection: normal inspection of the chest Resp Effort & Inspection: normal respiratory effort GI Inspection: normal to inspection Palpation: soft, other (gravid uterus) Other: infant vertex and appropriate size for gestational age Other: Cervical Exam: Extrem General: pedal edema Results POC Urinalysis 2 Dip (Clinic) Office Urine Glucose Negative Last Edit by Ria Marnio on 04/19/19 15:50 Office Urine Protein Negative Last Edit by Ria Marino on 04/19/19 15:50 Assessment & Plan Problems 1. Group B Streptococcus urinary tract infection affecting in first trimester O23.41 treated 2. Varicose veins of left lower extremity without ulcer or inflammation I83.92 enc support stockings 3. Family history of cleft palate Z82.79 Patient's sister 4. History of Z98.891 plans c section, hx failed 5. 38 weeks gestation of Z3A.38 Declines carrier. NIPT low risk,declines ntd screening. Anatomy US normal 6. 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 Elsa Leone MD
[2019-04-29] MEDS: Oxytocin 30 units/NS 500 ml 30 UNITS/500 ML IV.SOLN 334 UNITS IV (13:05)
[2019-04-29] MEDS: Lactated Ringers 1,000 ML 100 ML IV (14:15)
[2019-04-29] MEDS: Ketorolac 30 MG/ML Syringe IV (19:34)
[2019-04-29] MEDS: 0.9% Saline Lock 10 ML Syringe IV (23:20)
[2019-04-30] VITALS (13 sets, daily range): BP systolic 102–120; BP diastolic 54–72; PULSE 58–72; RESP 16–18; TEMP 36.6–37.3; O2SAT 97–100
--- NOTE | 2019-04-30 01:00 | PCM.OPRPT ---
Problem List (1) Family history of cleft palate Status: Acute Comment: Patient's sister (2) GBS (group B streptococcus) UTI complicating Status: Acute Qualifiers: Comment: treated (3) History of Status: Acute Comment: plans c section, hx failed (4) Status: Acute Qualifiers: Comment: Declines carrier. NIPT low risk,declines ntd screening. 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 Spinal anesthesia was placed without difficulty. Calix catheter was placed. The patient was placed in the dorsal supine position with leftward tilt. Patient was prepped and draped in the normal sterile fashion. Pfannenstiel skin incision was made with the scalpel and carried through to the underlying layer of fascia with the scalpel. Fascia was nicked in the midline and the incision extended laterally. The rectus bellies were dissected off superiorly and inferiorly with out complication both sharply and bluntly. The peritoneum was entered digitally. The incision was stretched and a low transverse uterine incision was made with the scalpel. The 's head was delivered atraumatically followed by the anterior and posterior shoulders without complication the rest of the delivered. The cord was clamped and cut and the was handed off to awaiting nurse. The placenta was delivered spontaneously immediately following and was noted to be intact and have a three-vessel cord. The uterus was exteriorized cleared of all clots and debris, and the incision was closed in a double layer closure using #1 Monocryl. The ovaries and fallopian tubes were noted to be within normal limits. The uterus was returned to the maternal abdomen and gutters were cleared of all clots and debris. The peritoneum was closed with 3-0 Monocryl in a running fashion. Gloves were changed prior to fascial closure. Fascia was closed with 0 PDS in a running fashion. Subcutaneous tissue was copiously irrigated and the skin was closed with 3-0 Monocryl in a subcuticular fashion. Mepilex dressing was applied without complication. Patient was taken to recovery in stable condition. It was discussed with the patient that based on the clinical information obtained during this encounter, combined with her history, at this time I would recommend repeat cesareans for future deliveries if further pregnancies are desired. Multi Select Codes - Urinary/Genital Urinary/Genital CPT Codes: 71449 Delivery [facility]
[2019-04-30] MEDS: Ketorolac 30 MG/ML Syringe IV ×2 (01:47→13:06)
[2019-04-30] MEDS: Enoxaparin 40 MG/0.4 ML Syringe SC ×2 (01:48→13:12)
[2019-04-30] MEDS: 0.9% Saline Lock 10 ML Syringe IV ×3 (01:48→13:06)
[2019-04-30 05:17] LABS: Hematocrit 31.2 % (37-47); Hemoglobin 10.1 g/dL (12.0-15.0); Mean Corp Hgb Conc 32.4 g/dL (32-36); Mean Corpuscular Hgb 27.6 pg (27.0-32.0); Mean Corpuscular Volume 85.2 fL (81-99); Mean Platelet Vol. 11.1 fl (6.2-12.0); Platelet Count 163 K/mm3 (150-450); RBC Distribution Width CV 14.4 % (11.6-14.6); RBC Distribution Width SD 44.1 fl (35.1-43.9); Red Blood Count 3.66 M/mm3 (4.2-5.4)
--- NOTE | 2019-04-30 08:01 | PCM.PN.OB ---
Subjective: Doing well, no complaints.Pain controlled. Denies CP, SOB, N,V. Ambulating well, tolerating po. Lochia moderate, going well. - Physical Exam Vitals/I&O's: Vital Signs Temp Pulse Resp BP Pulse Ox 97.9 F 60 16 120/58 L 100 04/30/19 05:06 04/30/19 07:00 04/30/19 07:00 04/30/19 05:06 04/30/19 07:00 Oxygen Delivery Method Room Air Weight: 215 lb 12.8 oz Body Mass Index (BMI) 34.8 Intake and Output for Last 24 Hours 04/28/19 04/29/19 04/30/19 23:59 23:59 23:59 Intake Total 4275.83 / 4275.83 Output Total 1600 / 1600 1500 / 1500 Balance 2675.83 / 2675.83 -1500 / -1500 General: Alert, Oriented x3 Abdomen: Soft, Non-Distended, - - FF below U. Dressing dry and intact Laboratory Results 04/29/19 10:40: WBC 6.8, RBC 4.12 L, Hgb 11.3 L, Hct 34.8 L, MCV 84.5, MCH 27.4, MCHC 32.5, RDW Std Deviation 43.6, RDW Coeff of Anson 14.2, Plt Count 204, MPV 11.1, Immature Gran % (Auto) 0.600, Neut % (Auto) 64.8, Lymph % (Auto) 24.3, Newton % (Auto) 8.1, Eos % (Auto) 2.1, Baso % (Auto) 0.1, Absolute Neuts (auto) 4.4, Absolute Lymphs (auto) 1.65, Nucleated RBC % 0 04/29/19 10:40: Blood Type A POSITIVE, Antibody Screen NEGATIVE 04/30/19 05:00: WBC 8.0, RBC 3.66 L, Hgb 10.1 L, Hct 31.2 L, MCV 85.2, MCH 27.6, MCHC 32.4, RDW Std Deviation 44.1 H, RDW Coeff of Anson 14.4, Plt Count 163, MPV 11.1 Current Medications Acetaminophen (Tylenol) 1,000 mg PO Q8H PRN PRN Reason: Pain Score 1-3/10 Bisacodyl (Dulcolax) 10 mg RECTAL UD PRN PRN Reason: If no BM Enoxaparin Sodium (Lovenox) 40 mg SC DAILY [facility] Last Admin: 04/30/19 01:48 Dose: 40 mg Documented by: Hydrocortisone (Hytone) 1 applic TOPICAL TID PRN PRN; Protocol PRN Reason: Discomfort Ketorolac Tromethamine (Toradol (Bkc)) 30 mg IV Q6H [facility] Stop: 05/01/19 13:46 Last Admin: 04/30/19 01:47 Dose: 30 mg Documented by: Methylergonovine Maleate (Methergine) 0.2 mg IM X1 PRN PRN Reason: Uterine Atony Naloxone HCl (Narcan) 0.02 mg IV Q1M PRN PRN Reason: RR <10 and pt unresponsive Naproxen (Naprosyn) 250 - 500 mg PO Q8H PRN PRN PRN Reason: Pain Score 1-3/10 Ondansetron HCl (Zofran) 4 mg IV Q4H PRN PRN PRN Reason: Nausea Oxycodone HCl (Oxyir) 5 - 10 mg PO Q4H PRN PRN PRN Reason: Pain Score 4-10/10 Prochlorperazine Edisylate (Compazine Iv) 10 mg IV Q6H PRN PRN PRN Reason: NAUSEA Senna/Docusate Sodium (Senokot-S, Josefa-Colace) 0 tablet PO DAILY PRN PRN Reason: Constipation Simethicone (Mylicon) 80 mg PO PCHS PRN PRN Reason: Indigestion/stomach pain Sodium Chloride () 5 - 15 ml IV UD PRN PRN Reason: SALINE FLUSH Last Admin: 04/30/19 01:49 Dose: 10 ml Documented by: Medical Necessity - Tobacco Use Smoking Status: Never smoker Assessment/Plan All Active Problems (Last Reviewed 04/19/19 @ 15:46 by Ria Marino) GBS (group B streptococcus) UTI complicating (Acute) 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 routine post care 2. breast feeding- support given 3. rh positive 4. rubella immune
[2019-04-30] MEDS: Naproxen 250 MG Tablet PO (22:40)
[2019-05-01 02:00] VITALS: BP 132/61; PULSE 64; RESP 16; TEMP 37.2; O2SAT 98
[2019-05-01] MEDS: Acetaminophen 500 MG Tablet 1000 MG PO (02:42)
--- NOTE | 2019-05-01 07:54 | PCM.PN.OB ---
Subjective: Doing well, no complaints.Pain controlled. Denies CP, SOB, N,V. Ambulating well, tolerating po. Lochia moderate, going well. - Physical Exam Vitals/I&O's: Vital Signs Temp Pulse Resp BP Pulse Ox 99.0 F 64 16 132/61 H 98 05/01/19 02:00 05/01/19 02:00 05/01/19 02:00 05/01/19 02:00 05/01/19 02:00 Oxygen Delivery Method Room Air Weight: 215 lb 12.8 oz Body Mass Index (BMI) 34.8 Intake and Output for Last 24 Hours 04/29/19 04/30/19 05/01/19 23:59 23:59 23:59 Intake Total 4275.83 / 4275.83 Output Total 1600 / 1600 1500 / 1500 Balance 2675.83 / 2675.83 -1500 / -1500 General: Alert, Oriented x3 Abdomen: Soft, Non-Distended, - - FF below U. Dressing dry and intact Current Medications Acetaminophen (Tylenol) 1,000 mg PO Q8H PRN PRN Reason: Pain Score 1-3/10 Last Admin: 05/01/19 02:42 Dose: 1,000 mg Documented by: Bisacodyl (Dulcolax) 10 mg RECTAL UD PRN PRN Reason: If no BM Enoxaparin Sodium (Lovenox) 40 mg SC DAILY [facility] Last Admin: 04/30/19 13:12 Dose: 40 mg Documented by: Hydrocortisone (Hytone) 1 applic TOPICAL TID PRN PRN; Protocol PRN Reason: Discomfort Methylergonovine Maleate (Methergine) 0.2 mg IM X1 PRN PRN Reason: Uterine Atony Naloxone HCl (Narcan) 0.02 mg IV Q1M PRN PRN Reason: RR <10 and pt unresponsive Naproxen (Naprosyn) 250 - 500 mg PO Q8H PRN PRN PRN Reason: Pain Score 1-3/10 Last Admin: 04/30/19 22:40 Dose: 500 mg Documented by: Ondansetron HCl (Zofran) 4 mg IV Q4H PRN PRN PRN Reason: Nausea Oxycodone HCl (Oxyir) 5 - 10 mg PO Q4H PRN PRN PRN Reason: Pain Score 4-10/10 Prochlorperazine Edisylate (Compazine Iv) 10 mg IV Q6H PRN PRN PRN Reason: NAUSEA Senna/Docusate Sodium (Senokot-S, Josefa-Colace) 0 tablet PO DAILY PRN PRN Reason: Constipation Simethicone (Mylicon) 80 mg PO PCHS PRN PRN Reason: Indigestion/stomach pain Sodium Chloride () 5 - 15 ml IV UD PRN PRN Reason: SALINE FLUSH Last Admin: 04/30/19 13:06 Dose: 10 ml Documented by: Medical Necessity - Tobacco Use Smoking Status: Never smoker Assessment/Plan All Active Problems (Last Reviewed 04/19/19 @ 15:46 by Ria Marino) GBS (group B streptococcus) UTI complicating (Acute) 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 routine post care 2. breast feeding- support given 3. rh positive 4. rubella immune 5. home today
--- NOTE | 2019-05-01 07:55 | DCINST_ITS ---
Additional Instructions: If you experience any of the following, contact your healthcare provider. * Bleeding that soaks a pad every hour for 2 hours * Fever 100.4 or higher * Unrelieved incision or abdominal pain * Swelling, redness, discharge or bleeding from your incision or episiotomy site * Your incision begins to separate * Problems urinating (including inability to urinate or burning while urinating). * Visual changes * Severe headache * Flu-like symptoms * Pain or redness in one of both of your breasts * Pain, warmth, tenderness or swelling in your legs, especially the calf area * Frequent nausea and vomiting * Symptoms of depression or anxiety If you experience any of the following, call 911 or go to the nearest Emergency Room. * Chest pain * Problems breathing * Seizure activity * Partial or complete paralysis of a body part, slurred speech, weakness or drooping of the face, or a sudden inability to walk or hold your balance Allergies/Adverse Reactions: Allergies No Known Allergies Allergy (Verified 04/29/19 12:20) Medications to take at Discharge Multivitamin [Multiple Vitamins] 1 tab PO DAILY 01/16/18 lactobacillus combination no.8 3 billion cell capsule 3,000 mmu cells PO DAILY 03/06/18 Guaifenesin [Mucinex] 600 mg PO PRN PRN 04/29/19 Follow-Up: Call to make an appointment with your doctor for an incision check in 1-2 weeks. You will also need a 6 week post- follow up appointment. Test results from this visit will be discussed in further detail at your follow- up appointment, if applicable.
--- NOTE | 2019-05-01 07:55 | PCM.DCCSEC ---
Additional Instructions: If you experience any of the following, contact your healthcare provider. Bleeding that soaks a pad every hour for 2 hours Fever 100.4 or higher Unrelieved incision or abdominal pain Swelling, redness, discharge or bleeding from your incision or episiotomy site Your incision begins to separate Problems urinating (including inability to urinate or burning while urinating). Visual changes Severe headache Flu-like symptoms Pain or redness in one of both of your breasts Pain, warmth, tenderness or swelling in your legs, especially the calf area Frequent nausea and vomiting Symptoms of depression or anxiety If you experience any of the following, call 911 or go to the nearest Emergency Room. Chest pain Problems breathing Seizure activity Partial or complete paralysis of a body part, slurred speech, weakness or drooping of the face, or a sudden inability to walk or hold your balance Allergies/Adverse Reactions: Allergies No Known Allergies Allergy (Verified 04/29/19 12:20) Medications to take at Discharge Multivitamin [Multiple Vitamins] 1 tab PO DAILY 01/16/18 lactobacillus combination no.8 3 billion cell capsule 3,000 mmu cells PO DAILY 03/06/18 Guaifenesin [Mucinex] 600 mg PO PRN PRN 04/29/19 Follow-Up: Call to make an appointment with your doctor for an incision check in 1-2 weeks. You will also need a 6 week post- follow up appointment. Test results from this visit will be discussed in further detail at your follow-up appointment, if applicable.
[2019-05-01] MEDS: Naproxen 250 MG Tablet PO (08:41)
[2019-05-01 08:43] VITALS: BP 119/63; PULSE 74; RESP 16; TEMP 36.7; O2SAT 98
== END 2019-05-01 10:45 | disposition home or self-care (01) | DRG 788 ==
PROVIDERS: Admitting Provider Obstetrics & Gynecology; Referring Provider Obstetrics & Gynecology; Visit Provider Obstetrics & Gynecology
PROC: (CPT 59514; principal; 2019-04-29 11:45)
DX: O65.5 Obstructed labor due to abnormality of maternal pelvic organs (principal); O34.211 Maternal care for low transverse scar from previous cesarean delivery; I83.92 Asymptomatic varicose veins of left lower extremity; Z3A.38 38 weeks gestation of pregnancy; Z37.0 Single live birth; Z82.79 Family history of other congenital malformations, deformations and chromosomal abnormalities
CPT/HCPCS: 85025; 85027; 86850; 86900; 86901; 99218; 99251; J7120; A4216; G0378; G0463

== ENCOUNTER → 2020-12-15 07:45 | Outpatient (CLI) | payer OTHER, SELFPAY ==
--- NOTE | 2020-12-15 07:48 | US_ITS ---
STUDY: FIRST TRIMESTER OBSTETRICAL ULTRASOUND REASON FOR EXAM: Female, 35 years old well being LMP: 10/01/2020. TECHNIQUE: Transabdominal TECHNICAL QUALITY: Adequate. PRIOR ULTRASOUND: None. FINDINGS: There is visualization of a single gestational sac in a normal intrauterine position. The mean sac diameter (MSD) measures 3.51 cm, indicating an estimated gestational age (EGA) of 9 weeks, 2 days. The gestational sac shape is within normal limits. There is a visualized yolk sac. The yolk sac measures 5.7 mm. The placenta is non-visualized. There is visualization of a live embryo. The crown-rump length (CRL) measures 3.42 cm, indicating an estimated gestational age (EGA) of 10 weeks, 0 days. There is demonstrated cardiac activity with a heart rate of 169 bpm. The estimated gestation age (EGA) by LMP is 10 weeks, 5 days. The estimated date of delivery (DANILO) by LMP is 07/08/2021. The estimated gestation age (EGA) by US is 10 weeks, 0 days. The estimated date of delivery (DANILO) by US is 07/13/2021. The uterus measures 10.5 cm x 6.9 cm x 6.4 cm. There is no demonstrated uterine fibroid. The cervix is closed. The right ovary measures 3.2 cm x 2.5 cm x 2 cm. There is no right ovarian cyst. There is no visualized right adnexal mass or complex lesion. The left ovary measures 3.6 cm x 3.9 cm x 2.6 cm. There is no left ovarian cyst. There is no visualized left adnexal mass or complex lesion. There is no fluid in the cul de sac. US/Init OB < 14Wks US IMPRESSION: Single live intrauterine gestation with a mean gestational age of 10 weeks. Electronically Signed: Prashanth Kellogg MD at 10:37 EDT , Service support ,
== END ==
PROVIDERS: Referring Provider Obstetrics & Gynecology; Visit Provider Obstetrics & Gynecology
DX: Z34.90 Encounter for supervision of normal pregnancy, unspecified, unspecified trimester (principal)
CPT/HCPCS: 76801

== ENCOUNTER → 2020-12-25 16:16 | Outpatient (CLI) | payer OTHER, SELFPAY ==
[2020-12-25 16:56] LABS: Absolute Lymphocyte Count 1.74 X10^3/uL (0.83-4.51); Absolute Neutrophil Count 5.3 X10^3/uL (2.0-7.7); Basophil# 0.02 X10^3/uL; Basophil% 0.3 % (0-1); Eosinophil# 0.25 X10^3/uL; Eosinophils% 3.2 % (0-5); Hemoglobin 11.3 g/dL (12.0-15.0); Lymphocyte # 1.74 X10^3/ul (0.83-4.51); Lymphocyte % 22.1 % (19-41); Mean Corp Hgb Conc 32.3 g/dL (32-36); Mean Corpuscular Hgb 30.8 pg (27.0-32.0); Mean Corpuscular Volume 95.4 fL (81-99); Mean Platelet Vol. 11.1 fl (6.2-12.0); Monocyte# 0.58 X10^3/uL; Monocyte% 7.4 % (0-10); NRBC Flagged by Analyzer 0 % (0-5); Neutrophil # 5.25 X10^3/uL (2.7-7.7); Neutrophil % 66.6 % (47-70); Platelet Count 243 K/mm3 (150-450); RBC Distribution Width CV 14.6 % (11.6-14.6); RBC Distribution Width SD 51.6 fl (35.1-43.9); Red Blood Count 3.67 M/mm3 (4.2-5.4); White Blood Count 7.9 K/mm3 (4.4-11.0)
[2020-12-25 17:49] LABS: Amphetamine Urine VISTA NEGATIVE (<1000 ng/mL); Barbiturate Urine VISTA NEGATIVE (< 200 ng/mL); Benzodiazepine Urine VISTA NEGATIVE (< 200 ng/mL); Cocaine Urine VISTA NEGATIVE (< 300 ng/mL); Ecstacy Urine VISTA NEGATIVE (< 500 ng/mL); Methadone Urine VISTA NEGATIVE (< 300 ng/mL); PCP Urine VISTA NEGATIVE (< 25 ng/mL); THC Urine VISTA NEGATIVE (< 50 ng/mL); Vista UDS pH Range 5
[2020-12-28 08:42] LABS: HIV - WCH Non-Reactive (Nonreactive); Hepatitis B Surface Antigen Non-Reactive (Nonreactive); Hepatitis C Antibody Non-Reactive (Nonreactive); Rubella IgG Reactive (Nonreactive); Syphilis Antibodies Non-reactive
[2020-12-28 22:06] LABS: Chlamydia By Nucleic Acid AMP Negative (Negative)
[2020-12-29 07:55] LABS: Gonococcus By Nucleic Acid AMP Negative (Negative)
[2020-12-31 16:28] LABS: HPV APTIMA, High Risk Negative (Negative)
== END ==
PROVIDERS: Visit Provider Obstetrics & Gynecology
DX: Z34.81 Encounter for supervision of other normal pregnancy, first trimester (principal); Z12.4 Encounter for screening for malignant neoplasm of cervix
CPT/HCPCS: 36415; 80307; 85025; 86703; 86762; 86780; 86803; 86850; 86900; 86901; 87086; 87088; 87340; 87491; 87591; 87624; 88175; G0145

== ENCOUNTER → 2021-02-03 08:51 | Outpatient (CLI) | payer OTHER, SELFPAY ==
[2021-02-03 09:44] LABS: T4 Free Direct 1.04 ng/dL (0.76-1.46); Thyroid Stim Hormone (TSH) 1.94 uIU/mL (0.358-3.74)
[2021-02-03 11:05] LABS: NATERA MAILED SPECIMEN
== END ==
PROVIDERS: Referring Provider Nurse Practitioner Women's Health; Visit Provider Nurse Practitioner Women's Health
DX: L65.9 Nonscarring hair loss, unspecified (principal); Z13.29 Encounter for screening for other suspected endocrine disorder
CPT/HCPCS: 36415; 84439; 84443

== ENCOUNTER → 2021-03-08 13:59 | Outpatient (CLI) | payer OTHER, SELFPAY ==
--- NOTE | 2021-03-08 14:03 | US_ITS ---
STUDY: SECOND AND THIRD TRIMESTER OBSTETRICAL ULTRASOUND REASON FOR EXAM: Female, 35 years old / anatomy -- AMA LMP: 10/01/2020. TECHNIQUE: Transabdominal TECHNICAL QUALITY: Adequate. PRIOR ULTRASOUND: Comparison is made with prior examination dated 12/07/2020. FINDINGS: There is a single intrauterine fetus. The fetus is in a cephalic presentation. There is demonstrated cardiac activity with a heart rate of 148 bpm. There is a normal amniotic fluid volume. The largest amniotic fluid pocket measures 5 cm x 6.3 cm. The amniotic fluid index (JOSH) is within normal limits. The placenta is anterior in location and is not low lying. There are Grade 0 placental changes. The cervix measures 5 cm in length. The adnexal regions are not visualized. BIOMETRY: BPD: 5.54 cm: 22 weeks, 6 days HC: 20.9 cm: 22 weeks, 6 days AC: 18.6 cm: 23 weeks, 2 days FL: 3.8 cm: 22 weeks, 1 days CI: 78.6% FL/BPD: 68.7% FL/HC: FL/AC: 20.5% HC/AC: 1.13 age by current US: 22 weeks, 4 days. DANILO by current US: 07/09/2019. Estimated weight: 545 grams, +/- 82 grams, 58.6 %. age by prior US: 21 weeks, 6 days. DANILO by prior US: 07/13/2021. Age by LMP: 22 weeks, 4 days. DANILO by LMP: 07/08/2021. ANATOMY: Gender: Male Cranium: Normal lateral ventricles. Normal choroid plexus. Normal cerebellum. Normal cisterna magna. Normal face, nose and lips. Chest: Normal 4-chamber heart. Abdomen/Pelvis: Normal diaphragm. Normal stomach. Normal abdominal wall. Normal cord insertion. Normal 3 vessel cord. Normal kidneys. Normal bladder. Spine: Due to the position, limited visualization of the spine. Follow-up is recommended. Extremities: Normal bilateral upper extremities. Normal bilateral lower extremities. US/Transvaginal w/Preg US IMPRESSION: Single live uterine gestation with mean gestational age of 21 weeks and 6 days. The measurements obtained today following the normal expected range. Limited visualization of the spine due to the position. Repeat examination is recommended. Electronically Signed: Prashanth Kellogg MD at 9:01 EST , Service support ,
--- NOTE | 2021-03-08 15:01 | US_ITS ---
STUDY: SECOND AND THIRD TRIMESTER OBSTETRICAL ULTRASOUND REASON FOR EXAM: Female, 35 years old / anatomy -- AMA LMP: 10/01/2020. TECHNIQUE: Transabdominal TECHNICAL QUALITY: Adequate. PRIOR ULTRASOUND: Comparison is made with prior examination dated 12/07/2020. FINDINGS: There is a single intrauterine fetus. The fetus is in a cephalic presentation. There is demonstrated cardiac activity with a heart rate of 148 bpm. There is a normal amniotic fluid volume. The largest amniotic fluid pocket measures 5 cm x 6.3 cm. The amniotic fluid index (JOSH) is within normal limits. The placenta is anterior in location and is not low lying. There are Grade 0 placental changes. The cervix measures 5 cm in length. The adnexal regions are not visualized. BIOMETRY: BPD: 5.54 cm: 22 weeks, 6 days HC: 20.9 cm: 22 weeks, 6 days AC: 18.6 cm: 23 weeks, 2 days FL: 3.8 cm: 22 weeks, 1 days CI: 78.6% FL/BPD: 68.7% FL/HC: FL/AC: 20.5% HC/AC: 1.13 age by current US: 22 weeks, 4 days. DANILO by current US: 07/09/2019. Estimated weight: 545 grams, +/- 82 grams, 58.6 %. age by prior US: 21 weeks, 6 days. DANILO by prior US: 07/13/2021. Age by LMP: 22 weeks, 4 days. DANILO by LMP: 07/08/2021. ANATOMY: Gender: Male Cranium: Normal lateral ventricles. Normal choroid plexus. Normal cerebellum. Normal cisterna magna. Normal face, nose and lips. Chest: Normal 4-chamber heart. Abdomen/Pelvis: Normal diaphragm. Normal stomach. Normal abdominal wall. Normal cord insertion. Normal 3 vessel cord. Normal kidneys. Normal bladder. Spine: Due to the position, limited visualization of the spine. Follow-up is recommended. Extremities: Normal bilateral upper extremities. Normal bilateral lower extremities. US/OB Anatomy Scan IMPRESSION: Single live uterine gestation with mean gestational age of 21 weeks and 6 days. The measurements obtained today following the normal expected range. Limited visualization of the spine due to the position. Repeat examination is recommended. Electronically Signed: Prashanth Kellogg MD at 9:01 EST , Service support ,
== END ==
PROVIDERS: Referring Provider Obstetrics & Gynecology; Visit Provider Obstetrics & Gynecology
DX: O09.522 Supervision of elderly multigravida, second trimester (principal); Z3A.21 21 weeks gestation of pregnancy
CPT/HCPCS: 76805; 76817

== ENCOUNTER 2021-04-02 14:11 | Outpatient (CLI) | payer OTHER, SELFPAY ==
--- NOTE | 2021-04-02 14:15 | US_ITS ---
STUDY: SECOND AND THIRD TRIMESTER OBSTETRICAL ULTRASOUND - LIMITED REASON FOR EXAM: Female, 35 years old anatomy follow up LMP: 10/01/2020. PRIOR ULTRASOUND: Comparison is made with prior study dated 03/08/2021. TECHNIQUE: Transabdominal TECHNICAL QUALITY: Adequate. FINDINGS: There is a single intrauterine fetus. The fetus is in a cephalic presentation. There is demonstrated cardiac activity with a heart rate of 136 bpm. There is a normal amniotic fluid volume. The largest amniotic fluid pocket measures 5.5 cm. The amniotic fluid index (JOSH) is within normal limits. The placenta is anterior in location and is not low lying. There are Grade 0 placental changes. The cervix measures 4.7 cm in length. BIOMETRY: Age by LMP: 26 weeks, 1 days. DANILO by LMP: 07/09/2019. age by prior US: 26 weeks, 1 days. DANILO by prior US: 07/09/2021. Reassessment of the cervical, thoracic and lumbar spine was obtained. No adenopathy is visualized. US/OB Limited (No Biometrics) IMPRESSION: Normal amniotic fluid. Electronically Signed: Prashanth Kellogg MD at 15:44 EST , Service support ,
[2021-04-02 15:30] LABS: Absolute Lymphocyte Count 1.85 X10^3/uL (0.83-4.51); Absolute Neutrophil Count 4.9 X10^3/uL (2.0-7.7); Basophil# 0.01 X10^3/uL; Basophil% 0.1 % (0-1); Eosinophils% 1.4 % (0-5); Hematocrit 34.6 % (37-47); Hemoglobin 11.5 g/dL (12.0-15.0); Lymphocyte # 1.85 X10^3/ul (0.83-4.51); Lymphocyte % 25.4 % (19-41); Mean Corp Hgb Conc 33.2 g/dL (32-36); Mean Corpuscular Hgb 29.9 pg (27.0-32.0); Mean Corpuscular Volume 90.1 fL (81-99); Mean Platelet Vol. 11.4 fl (6.2-12.0); Monocyte# 0.44 X10^3/uL; NRBC Flagged by Analyzer 0 % (0-5); Neutrophil # 4.86 X10^3/uL (2.7-7.7); Neutrophil % 66.7 % (47-70); Platelet Count 210 K/mm3 (150-450); RBC Distribution Width CV 12.3 % (11.6-14.6); RBC Distribution Width SD 40.2 fl (35.1-43.9); Red Blood Count 3.84 M/mm3 (4.2-5.4); White Blood Count 7.3 K/mm3 (4.4-11.0)
[2021-04-02 15:58] LABS: Glucose Challenge Gest 1H 50g 93 mg/dL (70-140)
== END 2021-04-02 23:59 | disposition short-term general hospital (02) ==
PROVIDERS: Referring Provider Obstetrics & Gynecology; Visit Provider Obstetrics & Gynecology
DX: O09.90 Supervision of high risk pregnancy, unspecified, unspecified trimester (principal); Z3A.00 Weeks of gestation of pregnancy not specified
CPT/HCPCS: 36415; 76815; 82950; 85025

== ENCOUNTER 2021-06-25 17:03 | Outpatient (CLI) | payer OTHER, SELFPAY | END 2021-06-25 23:59 | disposition home or self-care (01) | PROVIDERS: Visit Provider Obstetrics & Gynecology | DX: O09.522 Supervision of elderly multigravida, second trimester (principal) | CPT/HCPCS: 87081 ==

== ENCOUNTER 2021-07-01 09:55 | Inpatient (IN) | payer OTHER, SELFPAY ==
[2021-07-01] VITALS (18 sets, daily range): BP systolic 101–127; BP diastolic 38–76; PULSE 56–89; RESP 14–16; TEMP 36.4–36.8; O2SAT 97–100; BMI 35.7
[2021-07-01] MEDS: Lactated Ringers 1,000 ML 999 ML IV (10:25)
[2021-07-01 10:54] LABS: Absolute Lymphocyte Count 1.75 X10^3/uL (0.83-4.51); Absolute Neutrophil Count 4.8 X10^3/uL (2.0-7.7); Basophil# 0.01 X10^3/uL; Basophil% 0.1 % (0-1); Eosinophil# 0.14 X10^3/uL; Eosinophils% 1.9 % (0-5); Hematocrit 36.8 % (37-47); Hemoglobin 12.1 g/dL (12.0-15.0); Lymphocyte # 1.75 X10^3/ul (0.83-4.51); Lymphocyte % 23.6 % (19-41); Mean Corp Hgb Conc 32.9 g/dL (32-36); Mean Corpuscular Hgb 29.2 pg (27.0-32.0); Mean Corpuscular Volume 88.9 fL (81-99); Mean Platelet Vol. 11.6 fl (6.2-12.0); Monocyte# 0.66 X10^3/uL; Monocyte% 8.9 % (0-10); NRBC Flagged by Analyzer 0 % (0-5); Neutrophil # 4.81 X10^3/uL (2.7-7.7); Neutrophil % 65.1 % (47-70); Platelet Count 195 K/mm3 (150-450); RBC Distribution Width CV 12.9 % (11.6-14.6); RBC Distribution Width SD 42.2 fl (35.1-43.9); Red Blood Count 4.14 M/mm3 (4.2-5.4); White Blood Count 7.4 K/mm3 (4.4-11.0)
[2021-07-01] MEDS: Acetaminophen 500 MG Tablet 1000 MG PO ×2 (11:03→18:09)
--- NOTE | 2021-07-01 11:07 | HP.PCM.OB_ITS ---
HPI - General General Date of Admission: 07/01/21 HPI Narrative JOSE ANTONIO KNOWLES, is a 36 F who presents for RLTCS. Maternal Data Information DANILO Calculator Estimated Delivery Date Method Current WG Current Estimate 07/08/21 LMP (Certain) 39w 0d PFSH PFSH Medical History (Updated 06/29/21 @ 11:07 by Elle Claros) Knee pain, chronic Home Medications multivitamin 1 tab PO DAILY 01/16/18 [History Last Taken 06/30/21] lactobacillus combination no.8 3 billion cell capsule 3,000 mmu cells PO DAILY 03/06/18 [History Last Taken 06/30/21] miscellaneous medical supply See Rx Instructions MISCELLANEOUS .COMPLEX #2 ea 02/03/21 [Rx Last Taken Unknown] Allergy/AdvReac Type Severity Reaction Status Date / Time No Known Allergies Allergy Verified 06/25/21 14:23 Family History Unknown Diabetes Surgical History delivery delivered H/O knee surgery Social History Smoking Status: Never smoker alcohol intake: never substance use type: does not use caffeine: Yes what type of physical activity do you participate in: walking seatbelt use: always do you feel safe at home: Yes 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 Date Name GA/Weeks Outcome Route Bth Weight Gen Labor Lgth Anesthesia Del Locatn Provider FOB Unknown 2015 Malinda 44 live - full term 7lbs 10o z Female [address] Cali [place] Unknown 2017 Woo 41 live - full term 9lbs 2oz Mal e spinal [facility] 04/30/19 Tatiana 40 live - full term 7lbs 5oz Female 0 spinal [facility] JOVAN Delivery Date: post dates, prolonged labored. face presentation Lo Monique Delivery Date: face presentation Lo Monique Delivery Date: 04/30/19 RLTCS Ene[place],Lo Visit Details Expected Delivery Route/Plan RLTCS with SM Plans Covid status: non immune counseled regarding risk of covid in vs vaccination and declined vaccination Flu vaccine: declined Tdap vaccine: gvien Rhogam: na LARC form signed: declined movement and labor precautions reviewed. Problem list reviewed and updated with the most current plan of care details and appropriate orders placed. Relevant counseling for the gestational age provided. Continue routine care and follow up unless otherwise noted in visit notes/problem list details OB Flowsheet Initial Weight: 169 lb Date -?-?-?-?-?-?-?-?-?-?-?-?- EGA Weight BP Urine Prot -?-?-?-?-?-?-?-?-?-?-?-?- Glucose FHR FuHt Pres Dilation -?-?-?-?-?-?-?-?-?-?-?-?- Effaced St Visit Note 12/25/20 -?-?-?-?-?-?-?-?-?--?-?-?- 12w 1d 169 lb (+0 oz) 100/82 -?-?-?-?-?-?-?-?-?-?-?-?- 165 -?-?-?-?-?-?-?-?-?-?-?-?- SM- no vb viry dennison, had previous us 02/03/21 -?-?-?-?-?-?-?-?-?-?-?-?- 17w 6d 171 lb 6 oz (+2 lb 6 oz) 118/72 Negative -?-?-?-?-?-?-?-?-?-?-?-?- Negative 156 -?-?-?-?-?-?-?-?-?-?-?-?- MH-No VB, LOF. Increasing varicose veins: support hose ordered. Unable to fall asleep:try benadryl prn. More hair loss:thyroid labs and NIPT today. MFM US ordered. 02/26/21 -?-?-?-?-?-?-?-?-?-?-?-?- 21w 1d 186 lb (+17 lb) 118/62 Negative -?-?-?-?-?-?-?-?-?-?-?-?- Negative 146 -?-?-?-?-?-?-?-?-?-?-?-?- JV- no lof, vagi nal bleeding, or dec fm. pelvic support device recommended for lower pressure/pain radiating to back. Missed anatomy scan with MFM. anatomy scan ordered through the hospital. 04/02/21 -?-?-?-?-?-?-?-?-?-?-?-?- 26w 1d 194 lb 2 oz (+25 lb 2 oz) 118/72 -?-?-?-?-?-?-?-?-?-?-?-?- 147 -?-?-?-?-?-?-?-?-?-?-?-?- JV- pt drank her glucola but the lab was closed. She has her anatomy repeat scan today 04/23/21 -?-?-?-?-?-?-?-?-?-?-?-?- 29w 1d 200 lb (+31 lb) 109/65 Negative -?-?-?-?-?-?-?-?-?-?-?-?- Negative 145 30 -?-?-?-?-?-?--?-?-?-?-?-?- SM- no vb lof go od fm no regular ctx 05/21/21 -?-?-?-?-?-?-?-?-?-?-?-?- 33w 1d 210 lb 2 oz (+41 lb 2 oz) 110/68 Negative -?-?-?-?-?-?-?-?-?-?-?-?- Negative 140 33 -?-?-?-?-?-?-?-?-?-?-?-?- SM- no vb lof go od fm no regular ctx, dealing with colds 06/25/21 -?-?-?-?-?-?-?-?-?-?-?-?- 38w 1d 218 lb 8 oz (+49 lb 8 oz) 118/68 Negative -?-?-?-?-?-?-?-?-?-?-?-?- Negative 157 38 Cephalic -?-?-?-?-?-?-?-?-?-?-?-?- JV- no lof, vagi nal bleeding, or dec fm. rpt C/S for . GBS today. 07/01/21 -?-?-?-?-?-?-?-?-?-?-?-?- 39w 0d 221 lb 5.506 oz (+52 lb 5.506 oz) -?-?-?-?-?-?-?-?-?-?-?-?- -?-?-?-?-?-?-?-?-?-?-?-?- NST FHR Rate Baby A Baseline: 130 ROS Constitutional Constitutional: Reports systems reviewed and no addt'l complaints, except as documented Eyes Eyes: Denies change in vision ENT HEENT: Reports systems reviewed and no addt'l complaints, except as documented; Denies headache(s) Cardiovascular Cardiovascular: Reports systems reviewed and no addt'l complaints, except as documented; Denies chest pain or dyspnea Respiratory/Chest Respiratory/Chest: Reports systems reviewed and no addt'l complaints, except as documented Gastrointestinal Gastrointestinal: Reports systems reviewed and no addt'l complaints, except as documented; Denies abdominal pain Genitourinary Genitourinary: Reports systems reviewed and no addt'l complaints, except as documented, contractions Details: present (irregular) and movement Details: present; Denies dysuria or genital lesions Musculoskeletal Musculoskeletal: Reports systems reviewed and no addt'l complaints, except as documented Neurologic Neurologic: Reports systems reviewed and no addt'l complaints, except as documented Endocrine Endocrinology: Reports systems reviewed and no addt'l complaints, except as documented Vital Signs Vital Signs Vital Signs: Weight Weight: 221 lb 5.506 oz Body Mass Index (BMI) 35.7 Physical Exam Const alert, oriented x3, no apparent distress and healthy appearing HEENT normocephalic and moist oral mucous membranes Head and Scalp: atraumatic Neck full ROM, no lymphadenopathy, supple and thyroid normal General: trachea midline Lymph Lymphatic: no lymphadenopathy noted Chest inspection of chest normal Resp normal respiratory effort Cardio regular rate GI normal to inspection, nondistended, normoactive bowel sounds, soft to palpation and non-tender Inspection: gravid external exam normal Manual OB Exam: estimated gestational size appropriate, presentation cephalic, dilated, effaced and station Extremity normal to inspection General Extremity: Negative for edema Skin no rashes or lesions noted Neuro no focal motor deficits and deep tendon reflexes 2+ bilaterally Motor Exam: strength 5/5 throughout and clonus absent Psych mental status grossly normal Labs Labs Labs: Blood Type A POSITIVE Antibody Screen NEGATIVE Hct 36.8 % (37-47) L Hgb 12.1 g/dL (12.0-15.0) Obstetrics US Syphilis Total Ab Non-reactive Rubella IgG Antibody Reactive (Nonreactive) Hep Bs Antigen Non-Reactive (Nonreactive) Chlamydia DNA (EMILY) Negative (Negative) Neisseria gonorrhoeae DNA (EMILY) Negative (Negative) HIV 1&2 Antibody Non-Reactive (Nonreactive) Glucose 1 Hr 50 gm 93 mg/dL (70-140) Group B Strep DNA Negative (Negative) Rhogam given: No Miscellaneous Test Assessment & Plan (1) Family history of cleft palate: COMMENT: Patient's sister (2) Varicose veins of left lower extremity without ulcer or inflammation: COMMENT: enc support stockings/thigh high ordered (3) : QUALIFIERS: Weeks of gestation: 38 weeks Qualified Code(s): Z3A.38 - 38 weeks gestation of COMMENT: declines carrier, genetics low risk; NL anatomy, GBS negative (4) Supervision of high risk , antepartum: COMMENT: PRR DANILO: 07/08/21, boy PC: Woo Petty Victoria Spouse: Gene (5) AMA (advanced maternal age) multigravida 35+: QUALIFIERS: Trimester: second trimester Qualified Code(s): O09.522 - Supervision of elderly multigravida, second trimester COMMENT: growth scan at 36 weeks (6) H/O section: COMMENT: x3- repeat C/S at 39 weeks scheduled for 07/01 @ 12 with SM PLAN: plan RLTCS
--- NOTE | 2021-07-01 11:10 | OP.PCM_ITS ---
Assessment & Plan (1) H/O section: COMMENT: x3- repeat C/S at 39 weeks scheduled for 07/01 @ 12 with SM (2) AMA (advanced maternal age) multigravida 35+: QUALIFIERS: Trimester: second trimester Qualified Code(s): O09.522 - Supervision of elderly multigravida, second trimester COMMENT: growth scan at 36 weeks (3) Supervision of high risk , antepartum: COMMENT: PRR DANILO: 07/08/21, boy PC: Woo Petty Victoria Spouse: Gene (4) : QUALIFIERS: Weeks of gestation: 38 weeks Qualified Code(s): Z3A.38 - 38 weeks gestation of COMMENT: declines carrier, genetics low risk; NL anatomy, GBS negative (5) Varicose veins of left lower extremity without ulcer or inflammation: COMMENT: enc support stockings/thigh high ordered (6) Family history of cleft palate: COMMENT: Patient's sister (7) delivery delivered: COMMENT: SM RLTCS boy Marcanthony 39 minimal scar tissue Maternal Data Information DANILO Calculator Estimated Delivery Date Method Current WG Current Estimate 07/08/21 LMP (Certain) 39w 1d Final DANILO Source: LMP Details Operative Information Pre-Operative Diagnosis: Previous Post-Operative Diagnosis: same Indications for : Repeat Elective Classification: Scheduled Type of Anesthesia: Spinal Special Medications: arun Antibiotic Given: Ancef 2 grams IV x1 Drain: Calix to straight drain Estimated Blood Loss: 600 Fluids Replaced: crystalloid Findings Description of Procedure: Spinal anesthesia was placed without difficulty. Calix catheter was placed. The patient was placed in the dorsal supine position with leftward tilt. Patient was prepped and draped in the normal sterile fashion. Pfannenstiel skin incision was made with the scalpel and carried through to the underlying layer of fascia with the scalpel. Fascia was nicked in the midline and the incision extended laterally. The rectus bellies were dissected off superiorly and inferiorly with out complication both sharply and bluntly. The peritoneum was entered digitally. The incision was stretched and a low transverse uterine incision was made with the scalpel. The infant's head was delivered atraumatically followed by the anterior and posterior shoulders without complication the rest of the infant delivered. The cord was clamped and cut and the was handed off to awaiting nurse. The placenta was delivered spontaneously immediately following and was noted to be intact and have a three- vessel cord. The uterus was exteriorized cleared of all clots and debris, and the incision was closed in a double layer closure using #1 Monocryl. The ovaries and fallopian tubes were noted to be within normal limits. The uterus was returned to the maternal abdomen and gutters were cleared of all clots and debris. arun applied to incision. The peritoneum was closed with 3-0 Monocryl in a running fashion. muscle close with interrupted mattress sutures of 3-0 monocryl and arun applied. Gloves were changed prior to fascial closure. Fascia was closed with 0 PDS in a running fashion. Subcutaneous tissue was copiously irrigated and the skin was closed with 3-0 Monocryl in a subcuticular fashion. Mepilex dressing was applied without complication. Patient was taken to recovery in stable condition. It was discussed with the patient that based on the clinical information obtained during this encounter, combined with her history, at this time I would recommend cesareans for future deliveries if further pregnancies are desired. Amniotic Membrane Rupture Type: Artificial Amniotic Fluid Description: Clear Placenta Disposition: [facility] Cord Vessel Description: 3 Vessels Cord Entanglement: None Delayed Cord Clamping: Yes Complications Risks of Surgery Discussed w/Patient: Bleeding, Infection, Need for Future C- Sections and Injury to surrounding structure(s) including bowel and bladder Vaginal Delivery Complication Complications: None Admit VTE Documentation VTE Present on Admission: No VTE Mechan Device Prophylaxis: SCD's Procedures Urinary/Genital [id number]: [id number] Delivery [facility]
[2021-07-01] MEDS: Lactated Ringers 1,000 ML 150 ML IV (11:26)
--- NOTE | 2021-07-01 11:33 | NURSING ---
36 year old here for scheduled repeat C/S with SMarcanthony. NST started at 1032 and ended at 1059. NST reactive. FHT baseline 120, 15x15 accelerations and no decelerations. No contractions noted. uterus soft on palpation.
[2021-07-01] MEDS: Sodium Citrate/Citric Acid 30 ML UDC PO (12:32)
[2021-07-01] MEDS: Cefazolin 2 GM in 0.9% Normal Saline 100 ML IV (12:38)
[2021-07-01] MEDS: Oxytocin 30 units/NS 500 ml 30 UNITS/500 ML IV.SOLN 167 UNITS IV (14:15)
[2021-07-01] MEDS: Ketorolac 30 MG/ML Syringe IV ×2 (15:05→21:13)
[2021-07-01] MEDS: Lactated Ringers 1,000 ML 100 ML IV (18:06)
[2021-07-02] VITALS (8 sets, daily range): BP systolic 91–114; BP diastolic 44–57; PULSE 62–80; RESP 15–18; TEMP 36.5–36.8; O2SAT 96–100
[2021-07-02] MEDS: Acetaminophen 500 MG Tablet 1000 MG PO ×3 (00:25→12:44)
[2021-07-02] MEDS: Enoxaparin 40 MG/0.4 ML Syringe SC (02:40)
[2021-07-02] MEDS: 0.9% Saline Lock 10 ML Syringe IV ×2 (02:40→09:10)
[2021-07-02] MEDS: Ketorolac 30 MG/ML Syringe IV ×2 (02:40→09:09)
[2021-07-02 06:25] LABS: Hematocrit 31.7 % (37-47); Hemoglobin 10.5 g/dL (12.0-15.0); Mean Corp Hgb Conc 33.1 g/dL (32-36); Mean Corpuscular Volume 87.6 fL (81-99); Mean Platelet Vol. 11.4 fl (6.2-12.0); Platelet Count 155 K/mm3 (150-450); RBC Distribution Width CV 12.7 % (11.6-14.6); RBC Distribution Width SD 40.7 fl (35.1-43.9); Red Blood Count 3.62 M/mm3 (4.2-5.4); White Blood Count 7.5 K/mm3 (4.4-11.0)
--- NOTE | 2021-07-02 08:34 | PCM.DC ---
Discharge Instructions Diet Discharge Diet: No restrictions Activity Discharge Activity: May Not Drive (for 2 weeks or while taking narcotic pain medications.), May Shower and May Take a Tub Bath (in 7 days) May shower in (days): 0 May resume sexual activity in: 4-6 weeks Weight Bearing Status: Full weight bearing Lifting Restrictions: 20 pounds Dressing / Incision Call your doctor if your incision/area has: Continuous Slow Oozing, Sudden Increased Bleeding, Increased Pain/ Swelling, Increased Redness and Foul Smelling Discharge Call your doctor if you observe: Fever of 101 or Higher and Using more than 1 pad per hour (for 2 hours) Suture Line Care: Avoid Pulling/Pushing and Avoid Pinching/Bending Cleanse incision/area with: Soap & Water and Keep Dressing Clean & Dry Follow Up Care Please Follow Up With: Elsa Leone MD When: Call [phone] to make an appointment for an incision check in 1-2 weeks. Test Results: Test results from this visit will be discussed in further detail at your follow-up appointment, if applicable. Discharge Plan Admission Admit Date/Time: 07/01/21 09:55 Attending Provider: Elsa Leone Discharge Orders/Prescriptions Prescriptions: New oxycodone-acetaminophen [Percocet] 5-325 mg tablet 1 tab PO Q6H PRN (Reason: pain) 7 Days Qty: 20 RF: 0 naproxen [naproxen] 500 MG tablet 500 mg PO BID PRN PRN (Reason: Pain) Qty: 30 RF: 1 Continued Adult Probiotic 3 billion cell capsule 3,000 mmu cells PO DAILY RF: 0 miscellaneous medical supply Misc See Rx Instructions miscellaneous .COMPLEX Qty: 2 RF: 0 multivitamin 1 EACH tablet 1 tab PO DAILY RF: 0 Disposition Disposition (needs filled in before D/C Order can be placed): Home, Self Care
--- NOTE | 2021-07-02 08:36 | PCM.PN.OB ---
Subjective Subjective Patient doing well without complaints. Tolerating PO. Ambulating and voiding without difficulty. feeding well. Denies chest pain, shortness of breath, calf pain/swelling, fevers, chills, lightheadedness. Objective Data Objective Data Vital Signs: Vital Signs Temp Pulse Resp BP Pulse Ox 97.7 F L 63 16 91/44 L 99 07/02/21 03:45 07/02/21 06:15 07/02/21 06:15 07/02/21 03:45 07/02/21 06:15 Oxygen Delivery Method Room Air Weight: 221 lb 5.506 oz Body Mass Index (BMI) 35.7 Intake & Output: Intake and Output for Last 24 Hours 06/30/21 07/01/21 07/02/21 23:59 23:59 23:59 Intake Total 3004 / 3004 870 / 870 Output Total 600 / 600 1900 / 1900 Balance 2404 / 2404 -1030 / -1030 Lab / Micro Data Result Diagrams: 07/02/21 06:15 Labs: Laboratory Results - last 24 hr 07/01/21 10:25: WBC 7.4, RBC 4.14 L, Hgb 12.1, Hct 36.8 L, MCV 88.9, MCH 29.2, MCHC 32.9, RDW Std Deviation 42.2, RDW Coeff of Anson 12.9, Plt Count 195, MPV 11.6, Immature Gran % (Auto) 0.400, Neut % (Auto) 65.1, Lymph % (Auto) 23.6, Kingfisher % (Auto) 8.9, Eos % (Auto) 1.9, Baso % (Auto) 0.1, Absolute Neuts (auto) 4.8, Absolute Lymphs (auto) 1.75, Nucleated RBC % 0 07/01/21 10:25: Blood Type A POSITIVE, Antibody Screen NEGATIVE 07/02/21 06:15: WBC 7.5, RBC 3.62 L, Hgb 10.5 L, Hct 31.7 L, MCV 87.6, MCH 29.0, MCHC 33.1, RDW Std Deviation 40.7, RDW Coeff of Anson 12.7, Plt Count 155, MPV 11.4 Micro: Microbiology 07/01/21 11:32 Nasal Secretion SARS-CoV-2 Antigen (Rapid) - Final ROS Constitutional Constitutional: Reports systems reviewed and no addt'l complaints, except as documented Cardiovascular Cardiovascular: Reports systems reviewed and no addt'l complaints, except as documented Respiratory/Chest Respiratory/Chest: Reports systems reviewed and no addt'l complaints, except as documented Gastrointestinal Gastrointestinal: Reports systems reviewed and no addt'l complaints, except as documented Physical Exam Const alert, oriented x3 and no apparent distress HEENT Head and Scalp: atraumatic Resp normal respiratory effort GI soft to palpation and non-tender Inspection: incision intact, healing well and drainage (none) Bimanual Exam - Vag & Uterus: uterus non-tender Uterus Palpation: uterus fundus firm (below Umbilicus) Assessment & Plan (1) delivery delivered: COMMENT: MARIA ISABEL Leone 39 minimal scar tissue PLAN: s/p LTCS PPD # 1 1. routine post care 2. breast feeding- support given 3. rh positive 4. rubella immune
[2021-07-02] MEDS: Senna/Docusate Sodium 1 Tablet PO (10:21)
[2021-07-02] MEDS: Naproxen 500 MG Tablet PO (14:44)
== END 2021-07-02 14:50 | disposition home or self-care (01) | DRG 788 ==
PROVIDERS: Admitting Provider Obstetrics & Gynecology; Visit Provider Obstetrics & Gynecology
PROC: 10D00Z1 Extraction of Products of Conception, Low, Open Approach (ICD-10-PCS; CPT 59514; principal; 2021-07-01 11:45)
DX: O34.219 Maternal care for unspecified type scar from previous cesarean delivery (principal); I83.92 Asymptomatic varicose veins of left lower extremity; O22.03 Varicose veins of lower extremity in pregnancy, third trimester; Z37.0 Single live birth; Z3A.39 39 weeks gestation of pregnancy; Z82.79 Family history of other congenital malformations, deformations and chromosomal abnormalities
CPT/HCPCS: 59050; 85025; 85027; 86850; 86900; 86901; 87426; 99218; J7120; A4216; G0378; J2405

== ENCOUNTER → 2023-11-07 | Outpatient (CLI) | payer OTHER, SELFPAY ==
--- NOTE | 2023-11-07 13:10 | US_ITS ---
STUDY: FIRST TRIMESTER OBSTETRICAL ULTRASOUND REASON FOR EXAM: Female, 38 years old . dating. LMP: September 07, 2023. TECHNIQUE: Transvaginal TECHNICAL QUALITY: Adequate. PRIOR ULTRASOUND: None. FINDINGS: There is visualization of a single gestational sac in a normal intrauterine position. The mean sac diameter (MSD) measures 2.8 cm, indicating an estimated gestational age (EGA) of 7 weeks, 6 days. The gestational sac shape is within normal limits. There is a visualized yolk sac. The yolk sac measures 4 mm. The placenta is non-visualized. There is visualization of a live embryo. The crown-rump length (CRL) measures 1.9 cm, indicating an estimated gestational age (EGA) of 8 weeks, 2 days. There is demonstrated cardiac activity with a heart rate of 169 bpm. The estimated gestation age (EGA) by LMP is 8 weeks, 5 days. The estimated date of delivery (DANILO) by LMP is June 13, 2024. The estimated gestation age (EGA) by US is 8 weeks, 1 days. The estimated date of delivery (DANILO) by US is June 17, 2024. The uterus measures 11.3 cm x 7 cm x 6.1 cm. There is no demonstrated uterine fibroid. The cervix is closed. The right ovary measures 3.5 cm x 2.5 cm x 2.1 cm. There is no right ovarian cyst. There is no visualized right adnexal mass or complex lesion. The left ovary measures 2.8 cm x 2.2 cm x 1.9 cm. There is no left ovarian cyst. There is no visualized left adnexal mass or complex lesion. There is no fluid in the cul de sac. US/Transvaginal w/Preg US IMPRESSION: Single live intrauterine gestation with a mean gestational age of 8 weeks and 1 day. Electronically Signed: Prashanth Kellogg MD at 8:49 EDT ,
== END | disposition home or self-care (01) ==
LOC: OPUS 13:10
PROVIDERS: Referring Provider Obstetrics & Gynecology; Visit Provider Obstetrics & Gynecology
DX: Z34.90 Encounter for supervision of normal pregnancy, unspecified, unspecified trimester (principal)
CPT/HCPCS: 76817

== ENCOUNTER → 2023-11-15 | Outpatient (CLI) | payer OTHER, SELFPAY ==
[2023-11-18 06:10] LABS: Chlamydia By Nucleic Acid AMP Negative (Negative); Gonococcus By Nucleic Acid AMP Negative (Negative)
[2023-11-20 09:07] LABS: HPV APTIMA, High Risk Negative (Negative)
== END | disposition home or self-care (01) ==
PROVIDERS: Referring Provider Advanced Practice Midwife; Visit Provider Advanced Practice Midwife
DX: Z34.90 Encounter for supervision of normal pregnancy, unspecified, unspecified trimester (principal)
CPT/HCPCS: 87086; 87491; 87591; 87624; 88175; G0145

== ENCOUNTER → 2023-12-19 | Outpatient (CLI) | payer OTHER, SELFPAY | END | disposition home or self-care (01) | PROVIDERS: Referring Provider Nurse Practitioner Women's Health; Visit Provider Nurse Practitioner Women's Health | DX: O09.521 Supervision of elderly multigravida, first trimester (principal); Z3A.00 Weeks of gestation of pregnancy not specified | CPT/HCPCS: 36415 ==

== ENCOUNTER → 2023-12-29 | Outpatient (CLI) | payer OTHER, SELFPAY ==
[2023-12-29 12:25] LABS: Absolute Lymphocyte Count 1.48 X10^3/uL (0.83-4.51); Absolute Neutrophil Count 4.7 X10^3/uL (2.0-7.7); Basophil# 0.01 X10^3/uL; Basophil% 0.1 % (0-1); Eosinophil# 0.13 X10^3/uL; Eosinophils% 1.9 % (0-5); Hematocrit 32.7 % (37-47); Hemoglobin 10.8 g/dL (12.0-15.0); Lymphocyte # 1.48 X10^3/ul (0.83-4.51); Lymphocyte % 21.6 % (19-41); Mean Corpuscular Volume 87.7 fL (81-99); Mean Platelet Vol. 11.5 fl (6.2-12.0); Monocyte# 0.56 X10^3/uL; Monocyte% 8.2 % (0-10); NRBC Flagged by Analyzer 0 % (0-5); Neutrophil # 4.65 X10^3/uL (2.7-7.7); Neutrophil % 67.8 % (47-70); Platelet Count 200 K/mm3 (150-450); RBC Distribution Width SD 41.1 fl (35.1-43.9); Red Blood Count 3.73 M/mm3 (4.2-5.4); White Blood Count 6.9 K/mm3 (4.4-11.0)
[2023-12-29 14:08] LABS: HIV - WCH Non-Reactive (Nonreactive); Hepatitis B Surface Antigen Non-Reactive (Nonreactive); Hepatitis C Antibody Non-Reactive (Nonreactive); Rubella IgG Reactive (Nonreactive); Syphilis Antibodies Non-reactive
[2023-12-29 14:37] LABS: Hemoglobin A1c 4.9 % (3.8-5.6)
== END | disposition home or self-care (01) ==
LOC: WOBLAB 11:50
PROVIDERS: Advanced Practice Midwife; Referring Provider Obstetrics & Gynecology; Visit Provider Obstetrics & Gynecology
DX: O09.522 Supervision of elderly multigravida, second trimester (principal); Z3A.00 Weeks of gestation of pregnancy not specified
CPT/HCPCS: 36415; 83036; 85025; 86703; 86762; 86780; 86803; 86850; 86900; 86901; 87340

== ENCOUNTER → 2024-01-31 | Outpatient (CLI) | payer OTHER, SELFPAY ==
--- NOTE | 2024-01-31 14:12 | US_ITS ---
STUDY: SECOND AND THIRD TRIMESTER OBSTETRICAL ULTRASOUND REASON FOR EXAM: Female, 38 years old anatomy/cervical length LMP: September 11, 2023. TECHNIQUE: Transabdominal and Transvaginal TECHNICAL QUALITY: Adequate. PRIOR ULTRASOUND: Comparison is made with prior study November 07, 2023. FINDINGS: There is a single intrauterine fetus. The fetus is in a cephalic presentation. There is demonstrated cardiac activity with a heart rate of 157 bpm. There is a normal amniotic fluid volume. The largest amniotic fluid pocket measures 3.1 cm. The amniotic fluid index (JOSH) is within normal limits. The placenta is posterior in location and is not low lying. There are Grade 0 placental changes. The cervix measures 4.6 cm in length. The bilateral adnexal regions are normal. BIOMETRY: BPD: 4.55 cm: 19 weeks, 5 days: 28% HC: 18.52 cm: 20 weeks, 6 days: 69% AC: 15.3 cm: 20 weeks, 3 days: 61% FL: 3.37 cm: 20 weeks, 4 days: 53% CI: 68% FL/BPD: 74% FL/HC: 18% FL/AC: 22% HC/AC: 1.21 age by current US: 20 weeks, 3 days. DANILO by current US: June 16, 2024. Estimated weight: 354 grams, +/- 53 grams, 53 %. Age by LMP: 20 weeks, 2 days. DANILO by LMP: June 17, 2024. ANATOMY: Gender: Male Cranium: Normal lateral ventricles. Normal choroid plexus. Normal cerebellum. Normal cisterna magna. Normal face, nose and lips. Chest: Normal 4-chamber heart. Abdomen/Pelvis: Normal diaphragm. Normal stomach. Normal abdominal wall. Normal cord insertion. Normal 3 vessel cord. Normal kidneys. Normal bladder. Spine: Normal cervical spine. Normal thoracic spine. Normal lumbar spine. Normal sacrum. Extremities: Normal bilateral upper extremities. Normal bilateral lower extremities. US/OB Anatomy w/ Transvaginal IMPRESSION: Single live intrauterine gestation with a mean gestational age of 20 weeks and 3 days. Electronically Signed: Prashanth Kellogg MD at 11:01 EST ,
== END | disposition home or self-care (01) ==
LOC: US 14:10
PROVIDERS: Referring Provider Obstetrics & Gynecology; Visit Provider Obstetrics & Gynecology
DX: O09.90 Supervision of high risk pregnancy, unspecified, unspecified trimester (principal); Z3A.00 Weeks of gestation of pregnancy not specified
CPT/HCPCS: 76805; 76817

== ENCOUNTER → 2024-05-20 | Outpatient (CLI) | payer OTHER, SELFPAY ==
--- NOTE | 2024-05-20 12:21 | US_ITS ---
PROCEDURE: OB LIMITED WITH BIOMETRICS REASON FOR EXAM: growth. COMPARISON: None. FINDINGS Number: 1 Position: Vertex Placental Position: Posterior and not low-lying. Placental Abnormalities: None. DIMENSIONS: Biparietal Diameter: 9.3 cm: 37 weeks and 5 days: 88 percentile/ Head Circumference: 34.1 cm: 39 weeks and 2 days: 84 percentile/ Abdominal Circumference: 33.5 cm: 37 weeks 3 days: 84 percentile/ Femur Length: 7.2 cm: 36 weeks and 6 days: 57 percentile/ ESTIMATED WEIGHT: 3230 g plus/-484 g ESTIMATED WEIGHT PERCENTILE (24+ weeks): 77 ESTIMATED GESTATIONAL AGE: Baseline: 36 weeks and 4 days By Ultrasound: 38 weeks and 0 days ESTIMATED DATE OF DELIVERY: Baseline: June 11, 2024 By Ultrasound: June 03, 2024 BIOPHYSICAL ASSESSMENT: Amniotic Fluid Volume: Subjectively normal. Amniotic Fluid Index: 14.3 (8-24 cm normal range) Cardiac Motion: 153 beats per minute (average) Trunk and Limb Motion: Present. MATERNAL ANATOMY: Adnexa: Neither maternal ovary is successfully identified. Cervical Length (if measured): ANATOMY: Spine: Unremarkable. Cranium: Unremarkable. Cerebellum: Unremarkable. Cisterna Magna: Unremarkable. Cavum Septum Pellucidi: Present. Lateral Ventricles: Unremarkable. Choroid Plexus: Unremarkable. Midline Falx: Present. Nuchal Fold: Upper Lip: Grossly intact. Heart: Normal four-chamber view. Ventricular Outflow Tracts: Unremarkable. Stomach: Unremarkable. Kidneys: Unremarkable. Bladder: Midline. Umbilical Cord: Three vessel cord. Normal and placental insertions. Extremities: Unremarkable. US/OB Limited With Biometrics IMPRESSION: Single live intrauterine gestation with a mean gestational age of 38 weeks. Reading Location: [id number]
== END | disposition home or self-care (01) ==
LOC: US 12:15
PROVIDERS: Referring Provider Advanced Practice Midwife; Visit Provider Advanced Practice Midwife
DX: O09.523 Supervision of elderly multigravida, third trimester (principal); Z3A.36 36 weeks gestation of pregnancy
CPT/HCPCS: 76816

== ENCOUNTER → 2024-05-21 | Outpatient (CLI) | payer OTHER, SELFPAY | END | disposition home or self-care (01) | LOC: LABSPEC 16:47 | PROVIDERS: Referring Provider Obstetrics & Gynecology; Visit Provider Obstetrics & Gynecology | DX: O09.92 Supervision of high risk pregnancy, unspecified, second trimester (principal); Z3A.00 Weeks of gestation of pregnancy not specified | CPT/HCPCS: 87077; 87081; 87186 ==

== ENCOUNTER 2024-06-06 05:21 | Inpatient (IN) | payer OTHER, SELFPAY ==
--- NOTE | 2024-06-05 23:28 | HP.PCM.OB_ITS ---
HPI - General HPI Narrative JOSE ANTONIO KNOWLES, is a 38 F who presents for RLTCS. no vb lof good fm no regular ctx. Maternal Data Information DANILO Calculator Estimated Delivery Date Method Current WG Current Estimate 06/13/24 LMP (Certain) 38w 6d Other Estimates 06/17/24 Ultrasound #1 38w 2d PFSH PFS Medical History AMA (advanced maternal age) multigravida 35+ Early stage of delivery delivered Knee pain, chronic Home Medications ?Medication ?Instructions ?Recorded ?Last Taken ?Type lactobacillus combination no.8 3 3,000 mmu cells PO DA SINDHU Check 03/06/18 06/30/21 History billion cell capsule (Adult with primary doctor Probiotic) omega 9-gbe-xtt-fish oil 60 mg-90 1 cap PO DAILY 08/13 Unknown History mg-500 mg capsule (Fish Oil) docosahexaenoic acid 200 mg mg PO 11/10/23 Unknown His tory capsule ( DHA) fluticasone propionate 50 1 spray intranasal DAILY Unknown History mcg/actuation nasal spray,suspension (Flonase Allergy Relief) loratadine 10 mg tablet (Claritin) 10 mg PO DAILY 10/19 06/10 Unknown History Allergy/AdvReac Type Severity Reaction Status Date / Time Influenza Virus Vaccines Allergy Mild Hives Verified 06/04/24 13:05 (flu vaccine) Family History Unknown Diabetes Surgical History delivery delivered H/O knee surgery Social History adopted: No household members: spouse and children number of children: 4 current occupational status: unemployed current occupation: [employer] current occupational exposures/hazards: No pets and animals: Yes pets and animals: dog(s) history of recent travel: Yes ([place] - October 10) out of state: Yes out of country: No sexually active: Yes Smoking Status: Never smoker alcohol intake: never substance use type: does not use diet: other well-balanced diet: daily or most days caffeine: Yes Type: coffee eating out: rarely or never during the past year weight has: remained stable what type of physical activity do you participate in: walking, yoga and other details: Excersie program from home - for frequency: 5-6 times per week duration: 30-45 minutes/day seatbelt use: always do you feel safe at home: Yes 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 Date Name GA/Weeks Outcome Route Bth Weight Gen Labor Lgth Anesthesia Del Locatn Provider FOB 11/30/15 Malinda 44 live - full term 7lbs 10oz Fe male [address] Cali Caldwell [place] [facility] 01/17/18 Woo 41 live - full term 9lbs 2oz Male spinal [facility] Gene 04/30/19 Tatiana 40 live - full term 7lbs 5oz [facility] 07/01/21 Sulema Lopez 39 live - full term 8lb s 2oz Male spinal [facility] Sulema Gene Delivery Date: 11/30/15 Last Updated by: Lo Monique post dates, prolonged labored. face presentation Delivery Date: 01/17/18 Last Updated by: Lo Monique face presentation Delivery Date: 04/30/19 Last Updated by: Lo Monique [facility] Delivery Date: 07/01/21 Last Updated by: Daniela Sutton [facility] Visit Details Expected Delivery Route/Plan repeat c/s with Plans Covid status: [] Flu vaccine: [] Tdap vaccine: [] Rhogam: [] LARC form signed: [] Problem list reviewed and updated with the most current plan of care details and appropriate orders placed. Relevant counseling for the gestational age provided. Continue routine care and follow up unless otherwise noted in visit notes/problem list details OB Flowsheet Initial Weight: Not Recorded Date -?-?-?-?-?-?-?-?-?-?-?-?- EGA Weight BP Urine Prot -?-?-?-?-?-?-?-?-?-?-?-?- Glucose FHR FuHt Pres Dilation -?-?-?-?-?-?-?-?-?-?-?-?- Effaced St Visit Note 11/15/23 -?-?-?-?-?-?-?-?-?-?-?-?- 9w 6d 219 lb 8 oz 120/82 -?-?-?-?-?-?-?-?-?-?-?-?- 170 -?-?-?-?-?-?-?-?-?-?-?-?- KW- US done at [facility] in [facility]. FHT on handheld US today. NIPT desired at next visit-will need order/box. 12/19/23 -?-?-?-?-?-?-?-?-?-?-?-?- 14w 5d 215 lb 8 oz 124/77 Nega tive -?-?-?-?-?-?-?-?-?-?-?-?- Negative 165 -?-?-?-?-?-?-?-?-?-?-?-?- JV- no cramping or spotting. wants NIPT. for repeat . 01/31/24 -?-?-?-?-?-?-?-?-?-?-?-?- 20w 6d 225 lb 4 oz 120/70 Nega tive -?-?-?-?-?-?-?-?-?-?-?-?- Negative 156 -?-?-?-?-?-?-?-?-?-?-?-?- MH-No VB. Aden Gonzalez Noting pulling pain mid upper abdomen. States 'someone is tearing my fascia. Aware has diastasis rectus. Consider ligia band for support. Adamant not reflux. Anatomy US today 02/27/24 -?-?-?-?-?-?-?-?-?-?-?-?- 24w 5d 228 lb 121/74 Negative -?-?-?-?-?-?-?-?-?-?-?-?- Negative 150 25 -?-?-?-?-?-?-?-?-?-?-?-?- SM- no vb lof go od fm no regular ctx 03/27/24 -?-?-?-?-?-?-?-?-?-?-?-?- 28w 6d 135/76 Negative -?-?-?-?-?-?-?-?-?-?-?-?- Negative 154 28 -?-?-?-?-?-?-?-?-?-?-?-?- MH-No VB, LOF. G ood FM. Missed lab draw time for 3rd [employer] labs. Written orders given to have done tomorrow with PCP/lives in [place]. Larc. Declines tdap today 05/08/24 -?-?-?-?-?-?-?-?-?-?-?-?- 34w 6d 242 lb 6 oz 123/77 Nega tive -?-?-?-?-?-?-?-?-?-?-?-?- Negative 150 35 -?-?-?-?-?-?-?-?-?-?-?-?- KW- no vb/lof/ct x. good fm. KW- no vb/lof/ctx. good fm. concerns with husbands schedule and getting to appts. moving to [place] in 05/21/24 -?-?-?-?-?-?-?-?-?-?-?-?- 36w 5d 247 lb 2 oz 124/81 Nega tive -?-?-?-?-?-?-?-?-?-?-?-?- Negative 123 27 -?-?-?-?-?-?-?-?-?-?-?-?- JV- no lof, v ag inal bleeding, or dec fm. gbs collected. pt is concerned with the time of her cs. states if that is the only time then will get a hotel here. drives 2 hours to get here so would need to leave at 3:15 am to get here by 5:15 06/04/24 -?-?-?-?-?-?-?-?-?-?-?-?- 38w 5d 249 lb 4 oz 122/76 Nega tive -?-?-?-?-?-?-?-?-?-?-?-?- Negative 125 39 -?-?-?-?-?-?-?-?-?-?-?-?- JV- no complaint s today. risks, benefits, alternatives discussed today c- section consent signed. NST FHR Rate Baby A Baseline: 130 Variability:: Moderate Accelerations:: 15 x 15 Decelerations:: None NST Reactive:: Yes FHR Category:: Category I Uterine Activity:: irregular ROS Constitutional Constitutional: Reports systems reviewed and no addt'l complaints, except as documented Eyes Eyes: Denies change in vision ENT HEENT: Reports systems reviewed and no addt'l complaints, except as documented; Denies headache(s) Cardiovascular Cardiovascular: Reports systems reviewed and no addt'l complaints, except as documented; Denies chest pain or dyspnea Respiratory/Chest Respiratory/Chest: Reports systems reviewed and no addt'l complaints, except as documented Gastrointestinal Gastrointestinal: Reports systems reviewed and no addt'l complaints, except as documented; Denies abdominal pain Genitourinary Genitourinary: Reports systems reviewed and no addt'l complaints, except as documented, contractions Details: present (irregular) and movement Details: present; Denies dysuria or genital lesions Musculoskeletal Musculoskeletal: Reports systems reviewed and no addt'l complaints, except as documented Neurologic Neurologic: Reports systems reviewed and no addt'l complaints, except as documented Endocrine Endocrinology: Reports systems reviewed and no addt'l complaints, except as documented Physical Exam Const alert, oriented x3, no apparent distress and healthy appearing HEENT normocephalic and moist oral mucous membranes Head and Scalp: atraumatic Neck full ROM, no lymphadenopathy, supple and thyroid normal General: trachea midline Lymph Lymphatic: no lymphadenopathy noted Chest inspection of chest normal Resp normal respiratory effort Cardio regular rate GI soft to palpation and non-tender GI Narrative: gravid Inspection: gravid external exam normal Manual OB Exam: estimated gestational size appropriate, presentation cephalic, dilated, effaced and station Extremity normal to inspection General Extremity: Negative for edema Skin no rashes or lesions noted Neuro no focal motor deficits and deep tendon reflexes 2+ bilaterally Motor Exam: strength 5/5 throughout and clonus absent Psych mental status grossly normal Labs Labs Labs: Blood Type A POSITIVE Antibody Screen NEGATIVE Hct 32.7 % (37-47) L Hgb 10.8 g/dL (12.0-15.0) L Obstetrics Ultrasound Syphilis Total Ab Non-reactive Rubella IgG Antibody Reactive (Nonreactive) Hep Bs Antigen Non-Reactive (Nonreactive) Hepatitis C Antibody Non-Reactive (Nonreactive) Hepatitis C Ab (EIA) <0.1 s/co ratio (0.0-0.9) Chlamydia DNA (EMILY) Negative (Negative) N.gonorrhoeae DNA (EMILY) Negative (Negative) HIV 1&2 Antibody Non-Reactive (Nonreactive) Glucose 1 Hr 50 gm 93 mg/dL (70-140) Group B Strep DNA Negative (Negative) Rhogam given: No Miscellaneous Test Assessment & Plan (1) History of delivery, currently : COMMENT: x4-repeat with SM, RLTCS scheduled for 06/06 @ 7:15 with (2) Supervision of high-risk : QUALIFIERS: Trimester: second trimester Qualified Code(s): O09.92 - Supervision of high risk , unspecified, second trimester COMMENT: PRR,, DANILO 06/13/24, boy, PC: [employer], : Gene (3) : QUALIFIERS: Weeks of gestation: 38 weeks Qualified Code(s): Z3A.38 - 38 weeks gestation of COMMENT: ntd and carrier screen declined. NIPT low risk, nl anatomy (4) Obesity: QUALIFIERS: Obesity type: unspecified obesity type Obesity classification: unspecified obesity classification Serious obesity comorbidity presence: without serious comorbidity Qualified Code(s): E66.9 - Obesity, unspecified COMMENT: A1C-nl, encouraged healthy weight gain (5) AMA (advanced maternal age) multigravida 35+: QUALIFIERS: Trimester: third trimester Qualified Code(s): O09.523 - Supervision of elderly multigravida, third trimester COMMENT: growth US 36 weeks (6) Positive GBS test: PLAN: Plan plan RLTCS
[2024-06-06] VITALS (18 sets, daily range): BP systolic 95–156; BP diastolic 47–83; PULSE 58–88; RESP 14–16; TEMP 36.2–36.7; O2SAT 98–100; BMI 39.8
[2024-06-06] MEDS: Lactated Ringers 1,000 ML 999 ML IV (05:40)
[2024-06-06 06:06] LABS: Absolute Lymphocyte Count 1.98 X10^3/uL (0.83-4.51); Absolute Neutrophil Count 4.5 X10^3/uL (2.0-7.7); Basophil# 0.01 X10^3/uL; Basophil% 0.1 % (0-1); Eosinophil# 0.19 X10^3/uL; Eosinophils% 2.6 % (0-5); Hematocrit 29.9 % (37-47); Hemoglobin 9.6 g/dL (12.0-15.0); Lymphocyte # 1.98 X10^3/ul (0.83-4.51); Lymphocyte % 27.1 % (19-41); Mean Corp Hgb Conc 32.1 g/dL (32-36); Mean Corpuscular Hgb 25.5 pg (27.0-32.0); Mean Corpuscular Volume 79.5 fL (81-99); Mean Platelet Vol. 11.7 fl (6.2-12.0); Monocyte# 0.58 X10^3/uL; Monocyte% 7.9 % (0-10); NRBC Flagged by Analyzer 0 % (0-5); Neutrophil % 61.6 % (47-70); Platelet Count 217 K/mm3 (150-450); RBC Distribution Width CV 13.3 % (11.6-14.6); RBC Distribution Width SD 38.4 fl (35.1-43.9); Red Blood Count 3.76 M/mm3 (4.2-5.4); White Blood Count 7.3 K/mm3 (4.4-11.0)
[2024-06-06] MEDS: Acetaminophen 500 MG Tablet 1000 MG PO ×3 (06:11→18:17)
[2024-06-06 06:46] LABS: Syphilis Antibodies Nonreactive (Nonreactive)
[2024-06-06] MEDS: Lactated Ringers 1,000 ML 150 ML IV (06:55)
[2024-06-06] MEDS: Sodium Citrate/Citric Acid 30 ML UDC PO (06:55)
[2024-06-06] MEDS: Cefazolin 2 GM in Syringe IV (07:17)
--- NOTE | 2024-06-06 07:18 | OP.PCM_ITS ---
Assessment & Plan (1) delivery delivered: COMMENT: RLTCS boy 39 Ellis (2) Positive GBS test: (3) AMA (advanced maternal age) multigravida 35+: QUALIFIERS: Trimester: third trimester Qualified Code(s): O09.523 - Supervision of elderly multigravida, third trimester COMMENT: growth US 36 weeks (4) Obesity: QUALIFIERS: Obesity classification: unspecified obesity classification Obesity type: unspecified obesity type Serious obesity comorbidity presence: without serious comorbidity Qualified Code(s): E66.9 - Obesity, unspecified COMMENT: A1C-nl, encouraged healthy weight gain (5) Supervision of high-risk : QUALIFIERS: Trimester: second trimester Qualified Code(s): O09.92 - Supervision of high risk , unspecified, second trimester COMMENT: PRR,, DANILO 06/13/24, boy, PC: [employer], : Gene (6) : QUALIFIERS: Weeks of gestation: 38 weeks Qualified Code(s): Z3A.38 - 38 weeks gestation of COMMENT: ntd and carrier screen declined. NIPT low risk, nl anatomy (7) History of delivery, currently : COMMENT: x4-repeat with , RLTCS scheduled for 06/06 @ 7:15 with Maternal Data Information DANILO Calculator Estimated Delivery Date Method Current WG Current Estimate 06/13/24 LMP (Certain) 39w 1d Other Estimates 06/17/24 Ultrasound #1 38w 4d Final DANILO Source: LMP Operative Report (OB) Cecarean Details Procedure Type: low transverse Date of Procedure: 06/06/24 Procedure Start Time: 08:04 Procedure Stop Time: 08:48 Pre-Operative Diagnosis: Other Other Pre-Operative diagnosis: see a/p comments Post-Operative Diagnosis: Same as Pre-operative diagnosis Classification: Scheduled Type of Anesthesia: Spinal Special Medications: none Antibiotic Given: Ancef 2 grams IV x1 Drain: Calix to straight drain Estimated Blood Loss: 500 Fluids Replaced: crystalloid Findings Description of surgery: Spinal anesthesia was placed without difficulty. Calix catheter was placed. The patient was placed in the dorsal supine position with leftward tilt. Patient was prepped and draped in the normal sterile fashion. Pfannenstiel skin incision was made with the scalpel and carried through to the underlying layer of fascia with the scalpel. Fascia was nicked in the midline and the incision extended laterally. The rectus bellies were dissected off superiorly and inferiorly with out complication both sharply and bluntly. minimal scar tissue. The peritoneum was entered digitally. The incision was stretched and a low transverse uterine incision was made with the scalpel. The infant's head was delivered atraumatically followed by the anterior and posterior shoulders without complication the rest of the infant delivered. The cord was clamped and cut and the infant was handed off to awaiting nurse. The placenta was delivered spontaneously immediately following and was noted to be intact and have a three- vessel cord. The uterus was exteriorized cleared of all clots and debris, and the incision was closed in a single layer closure using #1 Monocryl. some thining of the right side of the incision. The ovaries and fallopian tubes were noted to be within normal limits. The uterus was returned to the maternal abdomen and gutters were cleared of all clots and debris. The peritoneum was closed with 3-0 Monocryl in a running fashion. Gloves were changed prior to fascial closure. Fascia was closed with 0 PDS in a running fashion. Subcutaneous tissue was copiously irrigated and the skin was closed with 3-0 Monocryl in a subcuticular fashion. Mepilex dressing was applied without compli cation. Patient was taken to recovery in stable condition. Surgical findings: n luterus tube sovaries Presentation: Vertex Amniotic Membrane Rupture Type: Artificial Amniotic Fluid Description: Clear Specimen collected: Yes Description of specimen(s) removed: placenta and baby Cord Vessel Description: 3 Vessels Delayed Cord Clamping: Yes Electrical Tech/Project Manager quality assurance associate: Yes Health Equipment Servicer: Willie Shea Tasks completed by spa assistant manager: Opening & closing, Retracting and Other (assisting in delivery of the ) Additional sourcing assistant?: No Complications Complications: No Admit VTE Documentation VTE Present on Admission: No VTE Mechan Device Prophylaxis: SCD's Procedures Urinary/Genital [id number]: [id number] Delivery [facility]
[2024-06-06] MEDS: Oxytocin 15 Units/NS 250ml 15 UNITS/250 ML IV.SOLN 83 UNITS IV (09:05)
[2024-06-06] MEDS: Ketorolac 30 MG/ML Syringe IV ×3 (09:41→22:49)
[2024-06-06] MEDS: 0.9% Saline Lock 10 ML Syringe IV ×2 (16:29→22:49)
[2024-06-06] MEDS: Enoxaparin 40 MG/0.4 ML Syringe SC (20:10)
[2024-06-07] MEDS: Acetaminophen 500 MG Tablet 1000 MG PO ×5 (00:27→23:56)
[2024-06-07] MEDS: Ketorolac 30 MG/ML Syringe IV (04:06)
[2024-06-07] MEDS: 0.9% Saline Lock 10 ML Syringe IV (04:06)
[2024-06-07 04:20] VITALS: BP 112/50; PULSE 88; RESP 16; TEMP 36.4; O2SAT 99
[2024-06-07 06:03] LABS: Hematocrit 26.6 % (37-47); Hemoglobin 8.6 g/dL (12.0-15.0); Mean Corp Hgb Conc 32.3 g/dL (32-36); Mean Corpuscular Hgb 25.5 pg (27.0-32.0); Mean Corpuscular Volume 78.9 fL (81-99); Mean Platelet Vol. 11.5 fl (6.2-12.0); Platelet Count 172 K/mm3 (150-450); RBC Distribution Width CV 13.4 % (11.6-14.6); RBC Distribution Width SD 38.4 fl (35.1-43.9); Red Blood Count 3.37 M/mm3 (4.2-5.4); White Blood Count 7.8 K/mm3 (4.4-11.0)
[2024-06-07 07:40] VITALS: BP 126/72; PULSE 83; RESP 16; TEMP 36.4; O2SAT 100
--- NOTE | 2024-06-07 09:36 | NURSING ---
jblough into see pt and assess headache and ringing in the ears
[2024-06-07] MEDS: Naproxen 500 MG Tablet PO ×2 (12:18→21:26)
[2024-06-07] MEDS: Senna/Docusate Sodium 1 Tablet PO (12:18)
[2024-06-07 15:30] VITALS: BP 114/54; PULSE 67; RESP 16; TEMP 36.7; O2SAT 100
--- NOTE | 2024-06-07 15:41 | DCINST_ITS ---
Discharge Instructions Diet Discharge Diet: No restrictions DC O2, CPAP, BIPAP needs Home O2 Discharge instructions: No Dressing / Incision Discharge Activity: May Not Drive (for 2 weeks or while taking narcotic pain medications.), May Shower and May Take a Tub Bath (in 7 days) May shower in (days): 0 May resume sexual activity in: 4-6 weeks Weight Bearing Status: Full weight bearing Lifting Restrictions: 20 pounds Dressing / Incision Call your doctor if your incision/area has: Continuous Slow Oozing, Sudden Increased Bleeding, Increased Pain/ Swelling, Increased Redness and Foul Smelling Discharge Call your doctor if you observe: Fever of 101 or Higher and Using more than 1 pad per hour (for 2 hours) Suture Line Care: Avoid Pulling/Pushing and Avoid Pinching/Bending Cleanse incision/area with: Soap & Water and Keep Dressing Clean & Dry Follow Up Care Please Follow Up With: Elsa Leone MD When: Call [phone] to make an appointment for an incision check in 1-2 weeks. Test Results: Test results from this visit will be discussed in further detail at your follow- up appointment, if applicable. Discharge Plan Admission Admit Date/Time: 06/06/24 05:21 Attending Provider: Elsa Leone Primary Care Provider: Care PhysicianAnahy Primary Discharge Orders/Prescriptions Prescriptions: New oxycodone-acetaminophen [Percocet] 5-325 mg tablet 1 tab PO Q4H PRN (Reason: pain) 7 Days Qty: 20 0RF naproxen 500 mg tablet 500 mg PO BID PRN PRN (Reason: Pain) Qty: 30 1RF No Action omega 5-yhm-fii-fish oil [Fish Oil] 60-90-500 mg capsule 1 cap PO DAILY Referrals / Follow Up: Care PhysicianAnahy Primary [Primary Care Provider] - Disposition Disposition (needs filled in before D/C Order can be placed): Home, Self Care
--- NOTE | 2024-06-07 15:43 | PCM.PN.OB ---
Subjective Subjective Patient doing well without complaints. Tolerating PO. Ambulating and voiding without difficulty. feeding well. Denies chest pain, shortness of breath, calf pain/swelling, fevers, chills, lightheadedness. Objective Data Objective Data Vital Signs: Vital Signs Temp Pulse Resp BP Pulse Ox O2 Del Method 97.6 F L 83 16 126/72 H 100 Room Air 06/07/24 07:40 06/07/24 07:40 06/07/24 07:40 06/07/24 07:40 06/07/24 07:40 06/07/24 07:40 Oxygen Delivery Method Room Air Weight: 246 lb 9.6 oz Body Mass Index (BMI) 39.8 Intake & Output: Intake and Output for Last 24 Hours 06/05/24 06/06/24 06/07/24 23:59 23:59 23:59 Intake Total 4149.17 / 4149.17 Output Total 2650 / 2650 800 / 800 Balance 1499.17 / 1499.17 -800 / -800 Lab / Micro Data 06/07/24 05:55 Labs: Laboratory Results - last 24 hr 06/07/24 05:55: WBC 7.8, RBC 3.37 L, Hgb 8.6 L, Hct 26.6 L, MCV 78.9 L, MCH 25.5 L, MCHC 32.3, RDW Std Deviation 38.4, RDW Coeff of Anson 13.4, Plt Count 172, MPV 11.5 ROS Constitutional Constitutional: Reports systems reviewed and no addt'l complaints, except as documented Cardiovascular Cardiovascular: Reports systems reviewed and no addt'l complaints, except as documented Respiratory/Chest Respiratory/Chest: Reports systems reviewed and no addt'l complaints, except as documented Gastrointestinal Gastrointestinal: Reports systems reviewed and no addt'l complaints, except as documented Physical Exam Const alert, oriented x3 and no apparent distress HEENT Head and Scalp: atraumatic Resp normal respiratory effort GI soft to palpation and non-tender Inspection: incision intact, healing well and drainage (none) Bimanual Exam - Vag & Uterus: uterus non-tender Uterus Palpation: uterus fundus firm (below Umbilicus) Assessment & Plan (1) delivery delivered: COMMENT: SM RLTCS boy 39 Ellis PLAN: Plan s/p LTCS PPD # 1 1. routine post care 2. breast feeding- support given 3. rh positive 4. rubella immune
[2024-06-07] MEDS: Enoxaparin 40 MG/0.4 ML Syringe SC (21:26)
[2024-06-07 21:42] VITALS: BP 129/74; PULSE 63; RESP 16; TEMP 36.4
[2024-06-08] MEDS: Naproxen 500 MG Tablet PO ×3 (05:27→20:09)
[2024-06-08 05:32] VITALS: BP 118/55; PULSE 68; RESP 16; TEMP 36.6; O2SAT 98
[2024-06-08] MEDS: Acetaminophen 500 MG Tablet 1000 MG PO ×3 (07:26→17:45)
[2024-06-08 07:30] VITALS: BP 124/64; PULSE 100; RESP 16; TEMP 36.6
--- NOTE | 2024-06-08 10:38 | PCM.PN.CNM ---
Subjective Subjective Patient doing well without complaints. Tolerating PO. Ambulating and voiding without difficulty. Feeding well. Denies chest pain, shortness of breath, calf pain/swelling, fevers, chills, lightheadedness. Objective Data Objective Data Vital Signs: Vital Signs Temp Pulse Resp BP Pulse Ox O2 Del Method 98 F 100 16 124/64 H 98 Room Air 06/08/24 07:30 06/08/24 07:30 06/08/24 07:30 06/08/24 07:30 06/08/24 05:32 06/08/24 05:32 Oxygen Delivery Method Room Air Weight: 246 lb 9.6 oz Body Mass Index (BMI) 39.8 Intake & Output: Intake and Output for Last 24 Hours 06/06/24 06/07/24 06/08/24 23:59 23:59 23:59 Intake Total 4149.17 / 4149.17 Output Total 2650 / 2650 800 / 800 Balance 1499.17 / 1499.17 -800 / -800 Lab / Micro Data 06/07/24 05:55 Physical Exam Const alert, oriented x3 and no apparent distress HEENT Head and Scalp: atraumatic Resp normal respiratory effort GI soft to palpation and non-tender Inspection: incision intact, healing well and drainage (none) Bimanual Exam - Vag & Uterus: uterus non-tender Uterus Palpation: uterus fundus firm (below Umbilicus) Assessment & Plan (1) delivery delivered: COMMENT: RLTCS boy 39 Ellis (2) Nasal congestion: COMMENT: afrin/mucinex PLAN: Plan s/p LTCS PPD # 2 1. routine post care 2. breast feeding- support given 3. rh positive 4. rubella immune 5. plan d/c home tomorrow
[2024-06-08] MEDS: Oxymetazoline 0.05% 1 SPRAY SPRAY.BTL NASAL ×2 (11:49→21:58)
[2024-06-08] MEDS: guaiFENesin 600 MG Tablet PO ×2 (11:50→21:58)
[2024-06-08] MEDS: Senna/Docusate Sodium 1 Tablet PO (11:51)
[2024-06-08 14:00] VITALS: BP 138/78; PULSE 73; RESP 16; TEMP 36.8; O2SAT 99
[2024-06-08 19:57] VITALS: BP 130/66; PULSE 76; RESP 16; TEMP 36.5; O2SAT 99
[2024-06-08] MEDS: Enoxaparin 40 MG/0.4 ML Syringe SC (21:59)
[2024-06-09] MEDS: Acetaminophen 500 MG Tablet 1000 MG PO ×2 (00:05→07:45)
[2024-06-09 02:10] VITALS: BP 146/82; PULSE 69; RESP 18; TEMP 36.7; O2SAT 100
[2024-06-09] MEDS: Naproxen 500 MG Tablet PO (04:00)
[2024-06-09 04:03] VITALS: BP 137/68
--- NOTE | 2024-06-09 09:11 | PCM.PN.CNM ---
Subjective Subjective Patient doing well without complaints. Tolerating PO. Ambulating and voiding without difficulty. Feeding well. Denies chest pain, shortness of breath, calf pain/swelling, fevers, chills, lightheadedness. Objective Data Objective Data Vital Signs: Vital Signs Temp Pulse Resp BP Pulse Ox O2 Del Method 98.0 F 69 18 137/68 H 100 Room Air 06/09/24 02:10 06/09/24 02:10 06/09/24 02:10 06/09/24 04:03 06/09/24 02:10 06/09/24 02:10 Oxygen Delivery Method Room Air Weight: 246 lb 9.6 oz Body Mass Index (BMI) 39.8 Intake & Output: Intake and Output for Last 24 Hours 06/07/24 06/08/24 06/09/24 23:59 23:59 23:59 Output Total 800 / 800 Balance -800 / -800 Lab / Micro Data 06/07/24 05:55 Physical Exam Const alert, oriented x3 and no apparent distress HEENT Head and Scalp: atraumatic Resp normal respiratory effort GI soft to palpation and non-tender Inspection: incision intact, healing well and drainage (none) Bimanual Exam - Vag & Uterus: uterus non-tender Uterus Palpation: uterus fundus firm (below Umbilicus) Assessment & Plan (1) Nasal congestion: COMMENT: afrin/mucinex (2) delivery delivered: COMMENT: RLTCS boy 39 Ellis (3) Obesity: QUALIFIERS: Obesity type: unspecified obesity type Obesity classification: unspecified obesity classification Serious obesity comorbidity presence: without serious comorbidity Qualified Code(s): E66.9 - Obesity, unspecified COMMENT: A1C-nl, encouraged healthy weight gain PLAN: Plan s/p LTCS PPD # 3 1. routine post care 2. breast feeding- support given 3. rh positive 4. rubella immune 5. d/c home today
--- NOTE | 2024-06-09 09:13 | DS.PCM_ITS ---
Providers Date of Admission: 06/06/24 Primary Care Physician: Anahy Primary Care Phys Reason For Visit: C SECTION Diagnosis Discharge Diagnosis (1) Nasal congestion: Status: Acute Code(s): R09.81 - Nasal congestion (2) delivery delivered: Status: Acute Code(s): O82 - Encounter for delivery without indication (3) Obesity: Status: Acute Code(s): E66.9 - Obesity, unspecified Qualifiers: Obesity type: unspecified obesity type Obesity classification: u nspecified obesity classification Serious obesity comorbidity presence: without serious comorbidity Qualified Code(s): E66.9 - Obesity, unspecified Plan s/p LTCS PPD # 3 1. routine post care 2. breast feeding- support given 3. rh positive 4. rubella immune 5. d/c home today Medications at Discharge Home Medications omega 9-epo-mhk-fish oil 60 mg-90 mg-500 mg capsule (Fish Oil) 1 cap PO DAILY 08/13/21 naproxen 500 mg tablet 500 mg PO BID PRN PRN Pain #30 tabs 06/07/24 oxycodone-acetaminophen 5 mg-325 mg tablet (Percocet) 1 tab PO Q4H PRN pain 7 days #20 tabs 06/07/24 Hospital Course Operations section Procedures None Summary of Care Provided Minutes Spent on Discharge: 15 Hospital Course: s/p repeat cs at term. uncomplicated pp course. Physical Exam Const alert, oriented x3 and no apparent distress HEENT Head and Scalp: atraumatic Resp normal respiratory effort GI soft to palpation and non-tender Inspection: incision intact, healing well and drainage (none) Bimanual Exam - Vag & Uterus: uterus non-tender Uterus Palpation: uterus fundus firm (below Umbilicus) Weight / BMI Weight Weight: 246 lb 9.6 oz Body Mass Index (BMI) 39.8 ABG / Lab / Microbiology Data 06/07/24 05:55 D/C Instructions Discharge Diet: No restrictions May shower in (days): 0 May resume sexual activity in: 4-6 weeks Weight Bearing Status: Full weight bearing Call your doctor if your incision/area has: Continuous Slow Oozing, Sudden Increased Bleeding, Increased Pain/ Swelling, Increased Redness and Foul Smelling Discharge Call your doctor if you observe: Fever of 101 or Higher and Using more than 1 pad per hour (for 2 hours) Suture Line Care: Avoid Pulling/Pushing and Avoid Pinching/Bending Cleanse incision/area with: Soap & Water and Keep Dressing Clean & Dry DC O2, CPAP, BIPAP Needs Home O2 Discharge instructions: No Additional Instructions: MEDICATIONS: Tylenol 650mg-1000mg every 6-8 hours for overall pain Motrin 800mg every 8 hours for cramping OR naproxen 500mg every Please Follow Up With: Elsa Leone MD When: Call [phone] to make an appointment for an incision check in 1-2 weeks. Meaningful Use Info Meaningful Use Meaningful Use Diagnoses (Choose all that apply): None applicable Ischemic Stroke Statin Dosing Therapy Reference: STATIN DOSE THERAPY REFERENCE: * Patients > 75 years receive moderate or high dose statin therapy. * Patients 75 years or YOUNGER should receive HIGH intensity statin dose unless contraindicated. You will be required to document reason for non-treatment if statin daily dose does not meet guidelines. HIGH DOSE STATIN THERAPY DAILY Atorvastatin > than or = to 40 mg Rosuvastatin > than or = to 20 mg Amlodipine + Atorvastatin > than or = to 2.5/40 mg Ezetimibe + Simvastatin 10/80 mg Simvastatin 80mg Discharge Plan Admission Admit Date/Time: 06/06/24 05:21 Attending Provider: Elsa Leone Primary Care Provider: Care PhysicianAnahy Primary Discharge Orders/Prescriptions Prescriptions: New oxycodone-acetaminophen [Percocet] 5-325 mg tablet 1 tab PO Q4H PRN (Reason: pain) 7 Days Qty: 20 0RF naproxen 500 mg tablet 500 mg PO BID PRN PRN (Reason: Pain) Qty: 30 1RF No Action omega 2-wkb-kxb-fish oil [Fish Oil] 60-90-500 mg capsule 1 cap PO DAILY Referrals / Follow Up: Care Physician,Anahy Primary [Primary Care Provider] - Disposition Disposition (needs filled in before D/C Order can be placed): Home, Self Care
[2024-06-09] MEDS: Oxymetazoline 0.05% 1 SPRAY SPRAY.BTL NASAL (09:38)
[2024-06-09] MEDS: Senna/Docusate Sodium 1 Tablet PO (09:44)
[2024-06-09] MEDS: guaiFENesin 600 MG Tablet PO (09:44)
[2024-06-09 09:48] VITALS: BP 124/69; PULSE 79; RESP 16; TEMP 36.7; O2SAT 99
--- NOTE | 2024-06-14 09:56 | NURSING ---
Follow up phone call: Patient was taken to the ER in [place] where she lives due to an inter tissue hematoma, was admitted for blood loss. She is now home and doing a lot better. Patient reports infant is doing so well and was able to be with her for most of her ER stay, he is feeding well and so sweet. Patient was satisfied with her care while here.
== END 2024-06-09 10:30 | disposition home or self-care (01) | DRG 788 ==
PROVIDERS: Admitting Provider Obstetrics & Gynecology; Visit Provider Obstetrics & Gynecology
PROC: 10D00Z1 Extraction of Products of Conception, Low, Open Approach (ICD-10-PCS; CPT 59514; principal; 2024-06-06 07:00)
DX: O34.211 Maternal care for low transverse scar from previous cesarean delivery (principal); E66.9 Obesity, unspecified; R09.81 Nasal congestion; O99.893 Other specified diseases and conditions complicating puerperium; O99.214 Obesity complicating childbirth; O99.824 Streptococcus B carrier state complicating childbirth; Z3A.38 38 weeks gestation of pregnancy; Z37.0 Single live birth
CPT/HCPCS: 59025; 59050; 85025; 85027; 86780; 86850; 86900; 86901; 99221; A4216; G0378; J2405

== ENCOUNTER → 2024-07-19 | Outpatient (CLI) | payer OTHER, SELFPAY ==
[2024-07-19 17:09] LABS: Absolute Neutrophil Count 3.7 X10^3/uL (2.0-7.7); Basophil# 0.02 X10^3/uL; Basophil% 0.3 % (0-1); Eosinophil# 0.21 X10^3/uL; Eosinophils% 2.9 % (0-5); Hematocrit 35.4 % (37-47); Hemoglobin 11.2 g/dL (12.0-15.0); Lymphocyte % 38.3 % (19-41); Mean Corp Hgb Conc 31.6 g/dL (32-36); Mean Corpuscular Hgb 26.2 pg (27.0-32.0); Mean Corpuscular Volume 82.9 fL (81-99); Mean Platelet Vol. 11.6 fl (6.2-12.0); Monocyte# 0.51 X10^3/uL; NRBC Flagged by Analyzer 0 % (0-5); Neutrophil # 3.74 X10^3/uL (2.7-7.7); Neutrophil % 51.1 % (47-70); Platelet Count 258 K/mm3 (150-450); RBC Distribution Width CV 16.8 % (11.6-14.6); RBC Distribution Width SD 50.4 fl (35.1-43.9); Red Blood Count 4.27 M/mm3 (4.2-5.4); White Blood Count 7.3 K/mm3 (4.4-11.0)
== END | disposition home or self-care (01) ==
PROVIDERS: Referring Provider Obstetrics & Gynecology; Visit Provider Obstetrics & Gynecology
DX: Z87.59 Personal history of other complications of pregnancy, childbirth and the puerperium (principal)
CPT/HCPCS: 36415; 85025